=== PATIENT | male | born 1960 | race Caucasian/White ===

== ENCOUNTER → 2016-10-11 16:26 | Outpatient (CLI) | payer BC ==
[2016-08-10 07:35] VITALS: BMI 29.3
[~2016-10-11 16:26] MED LIST: ADVAIR 100/501 DISK INH; BAYER CHEWABLE81 MG PO; CO Q-10100 MG PO; FLAXSEED OIL1000 MG PO; KRILL OIL 1,001 EAC1 PO; LIALDA1.2 G PO; MULTIPLE VITAMI1 TA1 PO; OMEPRAZOLE20 M1 PO; OS-CAL500 MG PO; PEPCID AC20 MG PO; PLAVIX75 MG PO; PRAVACHOL40 MG PO; PROAIR HFA8.5 GM INH; PROBIOTIC1 EAC1 PO; RANEXA1000 MG PO; ZETIA10 MG PO
[2016-10-11 17:39] LABS: CHOL - HDL RATIO 4.1 ratio (2.3-4.9); LDL-HDL RATIO 2.8 ratio (1.5-3.5)
== END | disposition home or self-care (01) ==
LOC: D.LABREF 16:26
PROVIDERS: Internal Medicine Interventional Cardiology
DX: I25.10 Atherosclerotic heart disease of native coronary artery without angina pectoris (principal)

== ENCOUNTER 2016-11-28 08:17 | Outpatient (CLI) | payer BC ==
[~2016-11-28] VITALS: Ht 170.2 cm; Wt 83.2 kg
--- NOTE | ~2016-11-28 | HEMODYNAMI ---
PATIENT:CHAUNCEY REDD MEDICAL RECORD: [id number] : 58 LOCATION:[facility] ADMISSION DATE: 11/28/16 Generatedon:11/28/201611:03 Patient name: CHAUNCEY REDD Patient #: [id number] SSN: : 1960 Date of study: 11/28/2016 Page: Of Hemodynamic Procedure Report Patient Data Patient Demographics Procedure consent was obtained First Name: CHAUNCEY Gender: Male Last Name: IVANIA : 1960 [facility] Initial: J Age: 56 year(s) Patient #: [id number] Race: Additional ID: [id number] Contact details Address: [address] [place] [address] State: [place] City: [place] Zip code: [address] Past Medical History Allergies Allergen Reaction Date Comments Reported Other 01/29/2016 AVELOX, CODEINE, SULFA allergy Other 05/13/2016 Sulfa,Codeine,Moxiloxacin allergy Sulfa 08/10/2016 drugs Codeine 08/10/2016 Sulfa 11/28/2016 drugs Codeine 11/28/2016 Other 11/28/2016 avelox allergy Admission Admission Data Admission Date: 11/28/2016 Admission Time: 8:17 Admit Source: Other Height (in.): 67 BSA: 1.95 (m2) Height (cm.): 170.18 BMI: 28.66 (kg/m2) Weight (lbs.): 183 Weight (kg.): 83.01 Lab Results Lab Result Date: 11/28/2016 Lab Result Time: 0:00 Biochemistry Name Units Result Min Max Creatinine mg/dl 0.7 --(*---)-- 0.6 1.3 CBC Name Units Result Min Max Hemoglobin g/dl 14.1 --(*---)-- 13.5 17.5 Procedure Procedure Types Cath Procedure Diagnostic Procedure [facility] w/Coronaries PCI Procedure Coronary Stent Initial Miscellaneous Procedures Moderate Sedation up to 15 minutes Procedure Description Procedure Date Procedure Date: 11/28/2016 Procedure Start Time: 10:47 Procedure End Time: 11:03 Procedure Staff Name Function Crow Quevedo MD Performing Physician Jose Lo RT Scrub Curtis Martin RN Nurse Petrona Dubose RT Monitor Procedure Data Cath Procedure Fluoroscopy Diagnostic fluoroscopy Total fluoroscopy Time: 2.8 time: 2.8 min min Diagnostic fluoroscopy Total fluoroscopy dose: 418 dose: 418 mGy mGy Contrast Material Contrast Material Type Amount (ml) Isovue 300 64 Entry Location Entry Primary Successful Side Size Upsize Upsize Entry Closure Orantes ccessful Closure Location (Fr) 1 (Fr) 2 (Fr) Remarks Device Remarks Radial Right 6 Fr Mechanical artery Short Compression Estimated blood loss: 10 ml Diagnostic catheters Device Type Used For End Catheter Placement Terumo 5Fr Anadarko 110cm LV Angiography catheter Terumo 5Fr Anadarko 110cm Left Coronary catheter Angiography Terumo 5Fr Anadarko 110cm Right Coronary catheter Angiography Procedure Complications No complications Procedure Medications Medication Administration Route Dosage Oxygen NC 2 l/min Heparin Flush Bag added to field 2 bags (1000units/500ml NS) 0.9% NaCl I.V. 100 ml/hr Radial Cocktail added to field 1 syringe (Verapomil 2mg/Nitro 400mcg/Heparin 1500units) Fentanyl I.V. 50 mcg Versed I.V. 1 mg Fentanyl I.V. 50 mcg Versed I.V. 1 mg Radial Cocktail I.A. 1 syringe (Verapomil 2mg/Nitro 400mcg/Heparin 1500units) Fentanyl I.V. 50 mcg Heparin Bolus I.V. 4000 units Hemodynamics Rest BSA: 1.95 (m2) HGB: 14.1 (g/dl) O2 Consumption: Estimated: 219.58 (ml/min) O2 Co nsumption indexed: Estimated:112.61 (ml/min/m) Heart Rate: 55 (bpm) Snapshots Pre Cath Intra NCS Post Cath Vital Signs Time Heart Resp SPO2 NIBP (mmHg) Rhythm Pain Sedation Rate (ipm) (%) Status Level (bpm) 10:31:01 54 18 99 127/79(102) NSR 0 (11) 10(A) , No pain 10:35:03 55 16 100 120/81(100) NSR 0 (11) 10(A) , No pain 10:39:12 55 16 97 125/76(102) NSR 0 (11) 10(A) , No pain 10:43:25 60 17 92 125/74(97) NSR 0 (11) 10(A) , No pain 10:47:36 58 16 92 120/70(94) NSR 0 (11) 10(A) , No pain 10:51:46 66 16 91 122/61(89) NSR 0 (11) 9(A) , No pain 10:56:00 62 16 92 122/62(88) NSR 0 (11) 9(A) , No pain 11:00:10 62 16 94 125/75(98) NSR 0 (11) 9(A) , No pain Medications Time Medication Route Dose Verified Delivered Reason Note s Effectiveness by by 10:40:19 Oxygen NC 2 l/min Curtis Acevedo Per physician Mario Martin RN RN 10:40:28 Heparin Flush added 2 bags Curtis Acevedo used for Bag to Mario Martin RN procedure (1000units/500ml RN NS) 10:40:38 0.9% NaCl I.V. 100 Curtis Acevedo Per physician ml/hr Mario Martin RN RN 10:40:47 Radial Cocktail added 1 Curtis Acevedo used for (Verapomil to syringe Mario Martin RN procedure 2mg/Nitro RN 400mcg/Heparin 1500units) 10:43:53 Fentanyl I.V. 50 mcg Curtis Currany for sedation Mario Martin RN RN 10:44:00 Versed I.V. 1 mg Curtis Curtis for sedation Mario Martin RN RN 10:48:52 Fentanyl I.V. 50 mcg Curtis Curtis for sedation Mario Martin RN RN 10:48:54 Versed I.V. 1 mg Curtis Curtis for sedation Mario Martin RN RN 10:49:02 Radial Cocktail I.A. 1 Curtis Maria for (Verapomil syringe Mario pino 2mg/Nitro RN 400mcg/Heparin 1500units) 10:52:44 Fentanyl I.V. 50 mcg Curtis Curtis for sedation Mario Martin RN RN 10:54:38 Heparin Bolus I.V. 4000 Curtis Curtis for units Martin Martin RN anticoagulation [employer] Log Time Note 10:17:15 Diagnostic Cath Status : Elective 10:17:37 Curtis Martin RN sent for patient. Start room use. 10:17:38 Time tracking: Regular hours 10:17:42 Plan of Care:Hemodynamics will remain stable., Cardiac rhythm will remain stable., Comfort level will be maintained., Respiratory function will remain adequate., Patient/ family verbilizes understanding of procedure., Procedure tolerated without complication., Recovers from procedure without complications.. 10:20:07 Lab Result : Hemoglobin 14.1 g/dl 10:20:07 Lab Result : Creatinine 0.7 mg/dl 10:20:12 Admit Source: Other 10:20:28 Patient Height : 170.18 cm 10:20:31 Patient Weight : 83.01 kg 10:23:17 Patient received from Pre/Post Procedure Room to CCL 2 Alert and oriented. Tansferred to table in Supine position. 10:23:18 Warm blankets applied, and fady hugger turned on for patient comfort. 10:23:18 Correct patient and procedure confirmed by team. 10:23:19 Signed procedure consent form obtained from patient. 10:23:20 ECG and BP/O2 sat monitors applied to patient. 10:23:21 Full Disclosure recording started 10:29:53 Vital chart was started 10:36:45 Baseline sample Acquired. 10:37:45 Rhythm: sinus bradycardia 10:38:06 H&P Date Dictated: 11/23/2016 Within 30 days and on chart., H&P Addendum completed by physician on day of procedure. (MUST COMPLETE FOR ALL OUTPATIENTS). 10:38:08 Pre-procedure instructions explained to patient. 10:38:08 Pre-op teaching completed and patient verbalized understanding. 10:38:09 Family in waiting room. 10:38:15 Patient NPO since Midnight. 10:38:29 Patient allergic to Sulfa drugs 10:38:35 Patient allergic to Codeine 10:38:46 Patient allergic to Other allergyavelox 10:38:49 Is the patient allergic to Iodine/contrast media? No. 10:38:51 Is patient on blood thinner?Yes 10:38:53 ACC The patient was administered the following blood thiners within the last 24 hours: ACCPlavix 10:39:06 Patient diabetic? No. 10:39:10 Previous problem with sedation/anesthesia? No ? 10:39:11 Snore? Yes 10:39:13 Sleep apnea? No 10:39:15 Deviated septum? No 10:39:16 Opens mouth fully? Yes 10:39:17 Sticks out tongue? Yes 10:39:20 Airway obstruction? Yes COPD 10:39:24 Dentures? No ? 10:39:28 Pre procedure: right dorsailis pedis pulse 2+ Normal; easily identifiable; not easily obliterated 10:39:30 Modified Bryan's test Ulnar < 7 seconds 10:39:32 Patient pain scale 0/10 ?. 10:39:40 IV patent on arrival in left hand with 0.9% NaCl at [facility]. 10:39:46 Lab results completed and on chart. 10:39:50 Right Radial & Right Groin area was prepped with chlora-prep and draped in sterile fashion 10:39:51 Alarms reviewed by R. N. 10:39:51 Sharps counted by scrub and verified by R.N. 10:39:54 Use device set Radial Dx 10:39:55 Acist Syringe opened to sterile field. 10:39:56 Medline Cath Pack opened to sterile field. 10:39:56 Bag Decanter opened to sterile field. 10:39:57 Terumo 6Fr Slender Glidesheath opened to sterile field. 10:39:57 St Anjum 260cm J .035 wire opened to sterile field. 10:39:58 Acist Hand Control opened to sterile field. 10:39:58 Acist Manifold opened to sterile field. 10:39:59 Tegaderm 4 x 4 opened to sterile field. 10:40:02 Final Timeout: patient, procedure, and site verified with staff and physician. All members of the team are in agreement. 10:40:04 Right Radial site verified by team. 10:40:06 Physical assessment completed. ASA score P 2 - A patient with mild systemic disease as per Crow Quevedo MD. 10:40:09 Sedation plan: IV Moderate Sedation Versed, Fentanyl 10:40:19 Oxygen 2 l/min NC was given by Curtis Martin RN; Per physician; 10:40:28 Heparin Flush Bag (1000units/500ml NS) 2 bags added to field was given by Curtis Martin RN; used for procedure; 10:40:38 0.9% NaCl 100 ml/hr I.V. was given by Curtis Martin RN; Per physician; 10:40:47 Radial Cocktail (Verapomil 2mg/Nitro 400mcg/Heparin 1500units) 1 syringe added to field was given by Curtis Martin RN; used for procedure; 10:43:53 Fentanyl 50 mcg I.V. was given by Curtis Martin RN; for sedation; 10:44:00 Versed 1 mg I.V. was given by Curtis Martin RN; for sedation; 10:46:15 Zero performed for pressure channel P1 10:46:43 Procedure started. 10:47:32 Local anesthetic to right radial artery with Lidocaine 2% by Crow Quevedo MD.INITIAL ACCESS ONLY 10:48:52 Fentanyl 50 mcg I.V. was given by Curtis Martin RN; for sedation; 10:48:54 Versed 1 mg I.V. was given by Curtis Martin RN; for sedation; 10:49:01 A 6 Fr Short sheath was inserted into the Right Radial artery 10:49:02 Radial Cocktail (Verapomil 2mg/Nitro 400mcg/Heparin 1500units) 1 syringe I.A. was given by Crow Quevedo MD; for vasodilation; 10:49:56 A Terumo 5Fr Anadarko 110cm catheter was advanced over the wire and used for LV Angiography. 10:50:46 LV gram done using DEVI 10:50:50 Injector settings: Ml/sec: 5, Volume: 15, 10:51:16 EF : 50 % 10:51:23 A Terumo 5Fr Anadarko 110cm catheter was advanced over the wire and used for Left Coronary Angiography. 10:51:57 Araujo Whisper J 300cm 0.014 guide wire opened to sterile field. 10:51:57 CircleCI BasixCompak Inflation Kit opened to sterile field. 10:52:37 A Terumo 5Fr Anadarko 110cm catheter was advanced over the wire and used for Right Coronary Angiography. 10:52:44 Fentanyl 50 mcg I.V. was given by Curtis Martin RN; for sedation; 10:53:15 Catheter removed. 10:53:32 Cordis 6FR XBLAD 3.5 guide catheter opened to sterile field. 10:54:38 Heparin Bolus 4000 units I.V. was given by Curtis Martin RN; for anticoagulation; 10:54:40 6 Fr XBLAD 3.5 guide catheter was inserted over the wire 10:56:05 Whisper wire advanced. 10:56:57 Inflation Number: 1 A Promus Premier OTW 2.75 x 24 stent was prepped and advanced across the Mid LAD. The stent was deployed at 19 DEEP for 0:11 (min:sec). 10:57:24 Inflation number: 2 The stent balloon was then re-inflated across the Mid LAD to 21 DEEP for 0:11 (min:sec). 10:57:48 Stent catheter was removed intact over wire. 10:57:49 Wire removed. 10:57:49 Guide catheter removed. 10:58:00 Sheath removed intact; hemostasis achieved with Mechanical Compression to the Right Radial artery. 10:58:04 Procedure ended.(Physican Out) 10:58:12 Terumo TR Band Standard opened to sterile field. 10:58:25 Fluoroscopy time 02.80 minutes. 10:58:31 Fluoroscopy dose: 418 mGy 10:58:31 Flurop Dose total: 418 10:58:39 Contrast amount:Isovue 300 64ml. 10:58:41 Sharps counted by scrub and verified by R.N. 10:58:43 TR band inflated with 12cc of air. 10:58:44 Insertion/operative site no bleeding no hematoma. 10:58:55 Post right radial artery:stable, clean and dry 10:58:56 Post Procedure Pulses reassessed and unchanged 10:58:59 Post-procedure physical assessment completed. ASA score P 2 - A patient with mild systemic disease as per Crow Quevedo MD. 10:59:01 Post procedure rhythm: unchanged. 10:59:03 Estimated blood loss: 10 ml 10:59:05 Post procedure instruction explained to patient.Patient verbalizes understanding. 10:59:06 Patient needs reinforcement of post procedure teaching. 10:59:17 Procedure type changed to Cath procedure, Diagnostic procedure, LHC, LHC w/Coronaries, PCI procedure, Coronary Stent Initial, Miscellaneous Procedures, Moderate Sedation up to 15 minutes 10:59:44 Procedure Complication : No complications 10:59:47 See physician's report for complete and final results. 11:00:37 Procedure and supply charges have been captured, reviewed, submitted and are correct. 11:03:11 Vital chart was stopped 11:03:13 Report given to Pre/Post Procedure Room. 11:03:16 Patient transfered to Pre/Post Procedure Room with Stretcher. 11:03:19 Procedure ended. 11:03:19 Full Disclosure recording stopped 11:03:23 End room use (Document Last) Intervention Summary Intervention Notes Time ActionType Lesion and Equipment Action# Pressure Duration Attributes Used 10:56:57 Place stent Mid LAD Promus 1 19 00:11 Premier OTW 2.75 x 24 stent 10:57:24 Reinflate Mid LAD Promus 2 21 00:12 stent Premier balloon OTW 2.75 x 24 stent Device Usage Item Name Manufacture Quantity Catalog Number Hospital Part Current Mini mal Lot# / Charge Number Stock Stock Serial# Code Acist Acist 1 [id number] 089980 882385 031338 20 Syringe [employer] Inc Medline Cardinal 1 [id number] 68983 685963 5 Cath Pack Health Bag Microtek 1 2002S 857949 58735 107391 5 [employer], an [employer]. Terumo 6Fr Terumo 1 [id number] 726389 640671 066729 [address] An[address] St Anjum 1 021974 571598 571942 875697 30 260cm J .035 wire Acist Hand Acist 1 26654 619673 463724 883652 5 Control Medical Systems Inc Acist Acist 1 29162 762293 776086 781955 5 Manifold Medical Systems Inc Tegaderm 4 3M 1 1626W 298471 312296 461310 5 x 4 Terumo 5Fr Terumo 1 40-3553 421735 341194 819691 5 Anadarko 110cm catheter Araujo Araujo 1 [id number] 100463 284097 478374 5 Whisper J Vascular 300cm 0.014 guide wire Merit Merit 1 [id number] 465590 468974 560021 15 [employer] Medical Inflation Kit Cordis 6FR Cardinal 1 [id number] 386397 514444 816897 10 XBLAD 3.5 Health guide catheter Promus [place] 1 [id number] 849669 474289 5 [id number] Premier OTW Scientific 2.75 x 24 stent Terumo TR Terumo 1 [id number] 041159 152676 897794 40 Band Standard Signature Audit Peshtigo Stage Time Signature Unsigned Intra-Procedure 11/28/2016 Petrona 11:03:33 AM Counts RT(R) Signatures Monitor : Petrona Signature : Counts RT Date : Time : [address] [place] [address]
[~2016-11-28 08:17] MED LIST changes: -CO Q-10100 MG PO; -FLAXSEED OIL1000 MG PO; -KRILL OIL 1,001 EAC1 PO; -PEPCID AC20 MG PO; -PROBIOTIC1 EAC1 PO
[2016-11-28] MEDS ORDERED: PEPCID AC20 MG PO (08:50)
[2016-11-28] MEDS ORDERED: LIALDA1.2 G PO (08:51)
[2016-11-28] MEDS ORDERED: CO Q-10100 MG PO (08:52)
[2016-11-28] MEDS ORDERED: KRILL OIL 1,001 EAC1 PO (08:53)
[2016-11-28] MEDS ORDERED: PROBIOTIC1 EAC1 PO (08:54)
[2016-11-28] MEDS ORDERED: MULTIPLE VITAMI1 TA1 PO (08:54)
[2016-11-28] MEDS ORDERED: FLAXSEED OIL1000 MG PO (08:54)
[2016-11-28 08:58] VITALS: BP 133/74; Ht 170.2 cm; Wt 83.2 kg
[2016-11-28 09:12] LABS: BASOPHILS 0.2 % (0.0-2.0); EOSINOPHILS 0.7 % (0-7); HEMATOCRIT 42.8 % (42.0-54.0); HEMOGLOBIN 14.1 g/dL (13.5-17.5); IMMATURE GRANULOCYTES 0.2 % (0-5); LYMPHOCYTES 24.7 % (15-50); MCH 29.6 pg (26.0-34.0); MCHC 32.9 g/dL (31.0-37.0); MCV 89.7 fL (80.0-100.0); MEAN PLATELET VOLUME 9.5 fL (7.4-10.4); MONOCYTES 6.7 % (2-11); NEUTROPHILS 67.5 % (40-80); PLATELET COUNT 274 10x3/uL (130-400); RBC 4.77 10x6/uL (4.20-6.10); RDW 13.5 % (11.5-14.5); WBC 5.8 10x3/uL (4.8-10.8)
[2016-11-28 09:23] LABS: CALC OSMOLALITY 285 mosm/kg (275-300); CALCIUM 9.3 mg/dL (8.5-10.1); CARBON DIOXIDE 27.1 mmol/L (21.0-32.0); CHLORIDE - SERUM 107 mmol/L (98-107); CREATININE - SERUM 0.7 mg/dL (0.6-1.3); GLUCOSE 107 mg/dL (74-106); POTASSIUM - SERUM 3.9 mmol/L (3.5-5.1); SODIUM 142 mmol/L (136-145); UREA NITROGEN 21 mg/dL (7-18); eGFR NON AFRICAN AMERICAN > 90 mL/min (90-120)
--- NOTE | 2016-11-28 11:28 | NUR ---
1128- RIGHT WRIST WITH TR BAND INTACT, NO BLEEDING NOTED.
--- NOTE | 2016-11-28 12:54 | NUR ---
1200-NO CHANGES, DENIES CHEST PAIN, NO BLEEDING, SANDWICH TRAY GIVEN
--- NOTE | 2016-12-13 14:37 | OP ---
PATIENT NAME: CHAUNCEY REDD MEDICAL RECORD: [id number] :58 LOCATION:D[facility] ADMISSION DATE: SURGEON: KISHAN CARMONA MD DATE OF OPERATION: 11/28/2016 PROCEDURES: 1. PTCA stent LAD. 2. Left heart catheterization. 3. Selective coronary angiography. 4. Left ventriculogram. INDICATION: Angina and coronary artery disease. PROCEDURE IN DETAIL: After informed consent was obtained and after a detailed explanation of the risks, benefits as well as alternative therapies, the patient elected to proceed with angiogram and angioplasty. The right radial area was prepped and draped in normal sterile fashion. The right radial artery was cannulated via modified Seldinger technique with placement of 6-Mohawk sheath. All catheters exchanged through this sheath. FINDINGS: Left ventriculogram was performed in standard 30-degree DEVI view, reveals good cardiac wall motion throughout all segments. Overall ejection fraction estimated 60%. SELECTIVE CORONARY ANGIOGRAPHY: 1. Left main showed no significant angiographic disease. 2. Left anterior descending has previously placed stents, it was up to 70% in-stent restenosis in the mid vessel. 3. Left circumflex has moderate irregularities, but no flow-limiting stenosis. Previously placed stent is widely patent. 4. Right coronary is small, nondominant with no significant disease throughout. PTCA STENT OF THE LAD: The stent used 2.75 x 24 mm Promus. Result was 0% residual stenosis. OVERALL IMPRESSION: Successful percutaneous transluminal coronary angioplasty stent of the left anterior descending going from at least 70% in-stent restenosis to 0% residual. TRANSINT:[id number] Voice Confirmation ID: [id number] DOCUMENT ID: [id number] KISHAN CARMONA MD at 1437 CC: [id number] DICTATION DATE: 11/28/16 1101 FIELD LABORER: 11/28/16 1856 [facility] CLI 11/28/16 [address] [place] [address]
== END 2016-11-28 15:00 | disposition home or self-care (01) ==
LOC: D.CATH 08:17
PROVIDERS: Internal Medicine Interventional Cardiology
DX: I25.119 Atherosclerotic heart disease of native coronary artery with unspecified angina pectoris (principal); T82.855A Stenosis of coronary artery stent, initial encounter

== ENCOUNTER 2017-07-07 02:16 | Emergency (ER) | payer BC ==
[2016-11-28 08:58] VITALS: BMI 28.7
[~2017-07-07 02:16] MED LIST changes: +CO Q-10100 MG PO; +FLAXSEED OIL1000 MG PO; +KRILL OIL 1,001 EAC1 PO; +PEPCID AC20 MG PO; +PROBIOTIC1 EAC1 PO
== END 2017-07-07 03:00 | disposition home or self-care (01) ==
LOC: D.ER 02:16
DX: H57.11 Ocular pain, right eye (principal)

== ENCOUNTER 2017-08-11 19:15 | Observation (INO) | payer BC ==
[~2017-08-11] VITALS: Ht 170.2 cm; Wt 81.1 kg
--- NOTE | ~2017-08-11 | HEMODYNAMI ---
PATIENT:CHAUNCEY REDD MEDICAL RECORD: [id number] : 58 LOCATION:[facility] D.2120 ADMISSION DATE: 08/11/17 Generatedon:08/12/20178:48 Patient name: CHAUNCEY REDD Patient #: [id number] SSN: : 1960 Date of study: 08/12/2017 Page: Of Hemodynamic Procedure Report Patient Data Patient Demographics Procedure consent was obtained First Name: CHAUNCEY Gender: Male Last Name: IVANIA : 1960 [facility] Initial: E Age: 56 year(s) Patient #: [id number] Race: Additional ID: [id number] Contact details [address]: [address] [place] [address] State: [place] City: [place] Zip code: [address] Past Medical History Allergies Allergen Reaction Date Comments Reported Other 01/29/2016 AVELOX, CODEINE, SULFA allergy Other 05/13/2016 Sulfa,Codeine,Moxiloxacin allergy Sulfa 08/10/2016 drugs Codeine 08/10/2016 Sulfa 11/28/2016 drugs Codeine 11/28/2016 Other 11/28/2016 avelox allergy Admission Admission Data Admission Date: 08/11/2017 Admission Time: 22:15 Room #: D.2120 Procedure Procedure Types Cath Procedure Diagnostic Procedure C [facility] w/Coronaries Miscellaneous Procedures Moderate Sedation up to 15 minutes Procedure Description Procedure Date Procedure Date: 08/12/2017 Procedure Start Time: 8:38 Procedure End Time: 8:48 Procedure Staff Name Function Crow Quevedo MD Performing Physician Eric Montano RT Monitor Petrona Dubose RT Scrub Curtis Martin RN Nurse Procedure Data Cath Procedure Fluoroscopy Diagnostic fluoroscopy Total fluoroscopy Time: 0.9 time: 0.9 min min Diagnostic fluoroscopy Total fluoroscopy dose: 220 dose: 220 mGy mGy Contrast Material Contrast Material Type Amount (ml) Isovue 300 38 Entry Location Entry Primary Successful Side Size Upsize Upsize Entry Closure Orantes ccessful Closure Location (Fr) 1 (Fr) 2 (Fr) Remarks Device Remarks Radial Right 6 Fr Mechanical artery Short Compression Estimated blood loss: 10 ml Diagnostic catheters Device Type Used For End Catheter Placement Diagnostic Terumo 5Fr Procedure [place] 110cm catheter Procedure Complications No complications Procedure Medications Medication Administration Route Dosage Oxygen NC 2 l/min Heparin Flush Bag added to field 2 bags (1000units/500ml NS) 0.9% NaCl I.V. 100 ml/hr Radial Cocktail added to field 1 syringe (Verapomil 2mg/Nitro 400mcg/Heparin 1500units) Fentanyl I.V. 50 mcg Versed I.V. 1 mg Fentanyl I.V. 50 mcg Versed I.V. 1 mg Radial Cocktail I.A. 1 syringe (Verapomil 2mg/Nitro 400mcg/Heparin 1500units) Hemodynamics Rest Heart Rate: 62 (bpm) Snapshots Pre Cath Intra NCS Post Cath Vital Signs Time Heart Resp SPO2 etCO2 NIBP (mmHg) Rhythm Pain Sedation Rate (ipm) (%) (mmHg) Status Level (bpm) 8:29:54 61 17 96 0 131/79(99) NSR 0 (11) 10(A) , No pain 8:34:37 61 16 97 0 121/73(99) NSR 0 (11) 10(A) , No pain 8:39:36 67 18 92 30 Measuring NSR 0 (11) 10(A) , No pain 8:39:57 62 16 94 22.5 129/79(105) NSR 0 (11) 10(A) , No pain 8:44:35 68 16 94 26.2 117/69(97) NSR 0 (11) 9(A) , No pain Medications Time Medication Route Dose Verified Delivered Reason Notes E ffectiveness by by 8:33:26 Oxygen NC 2 l/min Crow Acevedo Per Sae Martin RN physician 8:33:38 Heparin Flush added 2 bags Crow Acevedo used for Bag to Sae Martin rock room worker (1000units/500ml field NS) 8:33:48 0.9% NaCl I.V. 100 Crow Acevedo Per ml/hr Sae Martin RN physician 8:33:58 Radial Cocktail added 1 Crow Acevedo used for (Verapomil to syringe Sae Martin RN procedure 2mg/Nitro field 400mcg/Heparin 1500units) 8:38:00 Fentanyl I.V. 50 mcg Crow Acevedo for sedation Sae Martin RN 8:38:07 Versed I.V. 1 mg Crow Acevedo for sedation Sae Martin RN 8:41:03 Fentanyl I.V. 50 mcg Crow Acevedo for sedation Sae Martin RN 8:41:07 Versed I.V. 1 mg Crow Acevedo for sedation Sae Martin RN 8:41:16 Radial Cocktail I.A. 1 Crow Maria for (Verapomil syringe Sae Quevedo MD vasodilation 2mg/Nitro 400mcg/Heparin 1500units) Procedure Log Time Note 8:04:14 Curtis Martin RN sent for patient. Start room use. 8:04:16 Time tracking: Call back 8:04:20 Plan of Care:Hemodynamics will remain stable., Cardiac rhythm will remain stable., Comfort level will be maintained., Respiratory function will remain adequate., Patient/ family verbilizes understanding of procedure., Procedure tolerated without complication., Recovers from procedure without complications.. 8:22:05 Patient received from PCU to CCL 1 Alert and oriented. Tansferred to table in Supine position. 8:22:06 Warm blankets applied, and fady hugger turned on for patient comfort. 8:22:06 Correct patient and procedure confirmed by team. 8:22:07 Signed procedure consent form obtained from patient. 8:22:09 ECG and BP/O2 sat monitors applied to patient. 8:22:09 Full Disclosure recording started 8:22:22 IV patent on arrival in right wrist with 0.9% NaCl at KVO. 8:24:06 IV started by Curtis Martin RN inleft hand with a 22 gauge IV catheter with 0.9% NaCl at KVO. 8:24:13 IV right wrist D/C'd due to need to relocate for procedure.. 8:29:01 Vital chart was started 8:33:26 Oxygen 2 l/min NC was administered by Curtis Martin RN; Per physician; 8:33:38 Heparin Flush Bag (1000units/500ml NS) 2 bags added to field was administered by Curtis Martin RN; used for procedure; 8:33:48 0.9% NaCl 100 ml/hr I.V. was administered by Curtis Martin RN; Per physician; 8:33:58 Radial Cocktail (Verapomil 2mg/Nitro 400mcg/Heparin 1500units) 1 syringe added to field was administered by Curtis Martin RN; used for procedure; 8:35:24 Baseline sample Acquired. 8:35:27 Rhythm: sinus rhythm 8:35:33 H&P Date Dictated: 08/12/2017 Within 30 days and on chart.. 8:35:34 Pre-procedure instructions explained to patient. 8:35:34 Pre-op teaching completed and patient verbalized understanding. 8:35:36 Family in patients room. 8:35:38 Patient NPO since Midnight. 8:35:39 Is the patient allergic to Iodine/contrast media? No. 8:35:40 Is patient on blood thinner?Yes 8:35:43 ACC The patient was administered the following blood thiners within the last 24 hours: ACCPlavix 8:35:44 Patient diabetic? No. 8:35:46 Previous problem with sedation/anesthesia? No ? 8:35:48 Snore? Yes 8:35:50 Sleep apnea? No 8:35:51 Deviated septum? No 8:35:52 Opens mouth fully? Yes 8:35:52 Sticks out tongue? Yes 8:35:54 Airway obstruction? Yes COPD 8:35:56 Dentures? No ? 8:36:09 Pre procedure: right dorsailis pedis pulse 1+ Palpable, but thready & weak; easily obliterated 8:36:11 Modified Bryan's test Ulnar < 7 seconds 8:36:14 Patient pain scale 0/10 ?. 8:36:16 Lab results completed and on chart. 8:36:19 Right Radial & Right Groin area was prepped with chlora-prep and draped in sterile fashion 8:36:20 Alarms reviewed by R. N. 8:36:21 Sharps counted by scrub and verified by R.N. 8:36:22 --------ALL STOP TIME OUT------ 8:36:22 Final Timeout: patient, procedure, and site verified with staff and physician. All members of the team are in agreement. 8:36:24 Right Radial & Right Groin site verified by team. 8:36:28 Physical assessment completed. ASA score P 2 - A patient with mild systemic disease as per Crow Quevedo MD. 8:36:31 Sedation plan: IV Moderate Sedation Medication:Versed, Fentanyl 8:37:10 Use device set Radial Dx 8:37:12 Tegaderm 4 x 4 opened to sterile field. 8:37:13 Acist Manifold opened to sterile field. 8:37:49 Acist Hand Control opened to sterile field. 8:37:51 Acist Syringe opened to sterile field. 8:37:51 Medline Cath Pack opened to sterile field. 8:37:52 Bag Decanter opened to sterile field. 8:37:52 Terumo 6Fr Slender Glidesheath opened to sterile field. 8:37:52 St Anjum 260cm J .035 wire opened to sterile field. 8:37:53 MBrace Wrist Support opened to sterile field. 8:38:00 Fentanyl 50 mcg I.V. was administered by Curtis Martin RN; for sedation; 8:38:01 22g IV Catheter opened to sterile field. 8:38:06 Procedure started. 8:38:07 Versed 1 mg I.V. was administered by Curtis Martin RN; for sedation; 8:38:11 Local anesthetic to right radial artery with Lidocaine 2% by Crow Quevedo MD.INITIAL ACCESS ONLY 8:40:10 A 6 Fr Short sheath was inserted into the Right Radial artery 8:40:30 A Diagnostic Terumo 5Fr [place] 110cm catheter was advanced over the wire and used for Procedure. 8:40:31 Zero performed for pressure channel P1 8:41:03 Fentanyl 50 mcg I.V. was administered by Curtis Martin RN; for sedation; 8:41:07 Versed 1 mg I.V. was administered by Curtis Martin RN; for sedation; 8:41:16 Radial Cocktail (Verapomil 2mg/Nitro 400mcg/Heparin 1500units) 1 syringe I.A. was administered by Crow Quevedo MD; for vasodilation; 8:41:22 LV angiography performed. 8:41:25 LV gram done using DEVI 8:41:29 EF : 60 % 8:41:34 Injector settings: Ml/sec: 5, Volume: 15, 8:42:19 LCA angiography performed. 8:42:43 RCA angiography performed. 8:42:46 Catheter exchanged over wire. 8:43:37 Terumo TR Band Standard opened to sterile field. 8:43:40 Procedure ended.(Physican Out) 8:43:52 Sheath removed intact; hemostasis achieved with Mechanical Compression to the Right Radial artery. 8:44:17 Fluoroscopy time 00.90 minutes. 8:44:21 Fluoroscopy dose: 220 mGy 8:44:21 Flurop Dose total: 220 8:44:25 Contrast amount:Isovue 300 38ml. 8:44:27 Sharps counted by scrub and verified by R.N. 8:44:29 TR band inflated with 12cc of air. 8:44:31 Insertion/operative site no bleeding no hematoma. 8:44:36 Post Procedure Pulses reassessed and unchanged 8:44:38 Post-procedure physical assessment completed. ASA score P 2 - A patient with mild systemic disease as per Crow Quevedo MD. 8:44:41 Post procedure rhythm: unchanged. 8:44:44 Estimated blood loss: 10 ml 8:44:47 Post procedure instruction explained to patient.Patient verbalizes understanding. 8:44:47 Patient needs reinforcement of post procedure teaching. 8:44:54 Procedure type changed to Cath procedure, Diagnostic procedure, LHC, LHC w/Coronaries, Miscellaneous Procedures, Moderate Sedation up to 15 minutes 8:44:57 Procedure Complication : No complications 8:45:00 Procedure and supply charges have been captured, reviewed, submitted and are correct. 8:47:53 Vital chart was stopped 8:47:54 See physician's report for complete and final results. 8:47:56 Report given to PCU. 8:47:59 Patient transfered to PCU with Bed. 8:48:01 Procedure ended. 8:48:01 Full Disclosure recording stopped 8:48:04 End room use (Document Last) Device Usage Item Name Manufacture Quantity Catalog Hospital Part Current Minimal Lot# / Number Charge Number Stock Stock Serial# Code Tegaderm 4 1 [id number] 948200 [id number] 5 x 4 Acist Acist 1 88745 689631 403524 388067 [address] Acist Hand Acist 1 87548 790663 020332 807115 5 Control [employer] Systems Inc Acist Acist 1 10002 814272 480351 092445 20 Syringe Medical Systems Inc Medline Cardinal 1 [id number] 019867 86704 163365 5 Cath Pack Health Bag Microtek 1 2002S 728055 62252 205517 5 Decanter Medical Inc. Terumo 6Fr Terumo 1 [id number] 769921 855912 212747 [address] An[address]um St Anjum 1 104620 125795 850141 793374 30 260cm J .035 wire MBrace Advanced 1 140-0250-00 289489 98641 470344 5 Wrist Vascular Support Dynamics 22g IV B. Manning 1 [id number] 728129 538784 750636 5 Catheter Diagnostic Terumo 1 40-7203 750298 672000 352721 5 Terumo 5Fr [place] 110cm catheter Terumo TR Terumo 1 [id number] 112042 591988 491755 40 Band Standard Signature Audit [place] Stage Time Signature Unsigned Intra-Procedure 08/12/2017 Eric Montano 8:48:29 AM RT(R) Signatures Monitor : Eric Montano RT Signature : Date : Time : [address] [address]
[2017-08-11 19:50] LABS: BASOPHILS 0.8 % (0-2); EOSINOPHILS 2.3 % (0-7); HEMATOCRIT 43.5 % (42.0-54.0); HEMOGLOBIN 14.4 g/dL (13.5-17.5); IMMATURE GRANULOCYTES 0.1 % (0-5); MCHC 33.1 g/dL (31.0-37.0); MCV 90.6 fL (80.0-100.0); MEAN PLATELET VOLUME 9.5 fL (7.4-10.4); MONOCYTES 6.1 % (2-11); NEUTROPHILS 60.7 % (40-80); PLATELET COUNT 273 10x3/uL (130-400); RDW 13.5 % (11.5-14.5); WBC 7.3 10x3/uL (4.8-10.8)
[2017-08-11 20:04] LABS: ALBUMIN 3.4 g/dL (3.4-5.0); ALKALINE PHOSPHATASE 64 U/L (46-116); ALT (SGPT) 28 U/L (10-68); BILIRUBIN - TOTAL 0.28 mg/dL (0.2-1.3); CALC OSMOLALITY 278 mosm/kg (275-300); CARBON DIOXIDE 28.2 mmol/L (21.0-32.0); CHLORIDE - SERUM 104 mmol/L (98-107); CREATININE - SERUM 0.8 mg/dL (0.6-1.3); GLUCOSE 114 mg/dL (74-106); POTASSIUM - SERUM 3.9 mmol/L (3.5-5.1); PROTEIN - SERUM 7.3 g/dL (6.4-8.2); SODIUM 137 mmol/L (136-145); UREA NITROGEN 25 mg/dL (7-18); eGFR NON AFRICAN AMERICAN > 90 mL/min (90-120)
[2017-08-11 20:13] LABS: CHOL - HDL RATIO 4.8 ratio (2.3-4.9); CHOLESTEROL, TOTAL 193 mg/dL (0-200); CKMB 1.2 U/L (0.0-3.6); CREATINE KINASE 76 UL (21-232); HDL CHOLESTEROL 40 mg/dL (32-96); LDL CHOLESTEROL 103 mg/dL (0-100); LDL-HDL RATIO 2.6 ratio (1.5-3.5); TRIGLYCERIDE 251 mg/dL (30-200)
[2017-08-11 20:16] LABS: TROPONIN-I < 0.017 ng/mL (0.000-0.060)
[2017-08-11] MEDS ORDERED: ZANAFLEX4 MG PO (23:34)
[2017-08-11] MEDS ORDERED: PLAQUENIL200 MG PO (23:35)
--- NOTE | 2017-08-11 23:44 | NUR ---
RECEIVED REPORT FROM ER, PT BROUGHT VIA WHEELCHAIR, [id number], IV-RFA, [id number]/81, R-18, P-57, T-98.1, PLACE CALL LIGHT IN REACH, WILL CONTINUE PLAN OF CARE
[2017-08-12] VITALS: BP 130/90
[2017-08-12 04:16] VITALS: BP 112/65
[2017-08-12 05:20] VITALS: BP 130/90; Ht 170.2 cm; Wt 81.1 kg
--- NOTE | 2017-08-12 05:34 | NUR ---
PT IN BED RESTING QUIETLY. BREATHING EVEN AND UNLABORED. FAMLIY PRESENT AT BEDSIDE X1. BED IN LOW POSITION, CALL LIGHT WITHIN REACH. WILL CTM.
--- NOTE | 2017-08-12 07:30 | NUR ---
REPORT RECEIVED. RR EVEN AND UNLABORED. PT DENIES NEEDS AT THIS TIME, FAMILY AT BEDSIDE. ASSESSMENT PERFORMED. DR. CARMONA REPORTED TO ME THAT HE WILL BE GOING FOR A HEART CATH TODAY. WILL AWAIT ORDERS.
[2017-08-12 08:00] VITALS: BP 125/66
--- NOTE | 2017-08-12 08:00 | NUR ---
REFRACTORY TECHNICIAN CALLED TO PRE-OP PT. PRE-OP COMPELTED. CONSENTS SIGNED FOR HEART CATH AND BLOOD. PT DENIES FURTHER QUESTIONS. WILL CTM UPON RETURN FROM REFRACTORY TECHNICIAN.
--- NOTE | 2017-08-12 08:56 | HP ---
PATIENT: CHAUNCEY REDD MEDICAL RECORD: [id number] ACCOUNT: [id number] LOCATION:[address] : 58 ADMISSION DATE: 08/11/17 HISTORY AND PHYSICAL EXAMINATION DIAGNOSES: 1. Unstable angina. 2. Coronary artery disease. 3. Previous PCI stent. HISTORY OF PRESENT ILLNESS: This is a gentleman with a past history of coronary artery disease, last stent was in November, began having chest pain 2 days ago in an unstable escalating fashion. He had multiple episodes of chest pain, took multiple sublingual nitro. REVIEW OF SYSTEMS: The patient reports easy bruising but reports no swollen glands. The patient reports no fever, no night sweats, no significant weight gain, no significant weight loss. No significant exercise tolerance. The patient reports no dry eyes, no irritation, no vision change. Patient reports no difficulty hearing and no ear pain. Patient reports no frequent nose bleeds or nose and sinus problems. Patient reports on arm pain on exertion. No shortness of breath while lying down. No history of heart murmur. Patient reports no cough, no wheezing or coughing up blood. Patient reports no abdominal pain, no vomiting. Normal appetite. No diarrhea and not vomiting blood. No nausea and no constipation. Patient reports no incontinence. No difficulty urinating. No hematuria. No increased frequency. Patient reports no muscle aches. No weakness, no arthralgias, no back pain. No swelling of the extremities. Patient reports no abnormal mole, no jaundice, no rashes. Reports no loss of consciousness. No weakness and no numbness. No seizures, dizziness, or headaches. The patient reports no depression, no sleep disturbance, feeling safe in a relationship and no alcohol abuse. Patient reports on fatigue. Reports no runny nose or sinus pressure. No itching, no hives, and no frequent sneezing. PHYSICAL EXAMINATION: GENERAL APPEARANCE: Well-nourished, well-developed, appears stated age. Level of distress, comfortable. PSYCHIATRIC: Mental status, alert, normal affect. Orientation, oriented to time, place and person. EYES: Lids and conjunctiva, noninjected. No discharge, no pallor. ENT: Lips, teeth, gums, normal dentition. Oropharynx, no cyanosis, no pallor. NECK: Carotid arteries, bilateral normal upstroke, no bruits, no thrills. JUGULAR VEINS: No jugular venous pressure or distention. CERVICAL LYMPH NODES: Nontender, nonenlarged. THYROID: Not enlarged. Nontender. No nodules. LUNGS: Respiratory effort, unlabored. CHEST: Normal curvature. No thoracic deformity. No chest wall tenderness. Percussion, resonant. Auscultation, clear. No wheezes, no rales, no rhonchi. CARDIOVASCULAR: Precordial exam, nondisplaced. No heaves or pericardial thrills. Rate and rhythm, regular. Heart sounds, normal S1, normal S2. No S3, no gallop, no rub. Systolic murmur, not heard. Diastolic murmur, not heard. EXTREMITIES: No cyanosis, no edema. Peripheral pulses, full and equal in all extremities, except as noted. No bruits appreciated. ABDOMEN: Soft, nondistended. Normal aorta. No bruit. Nontender. No masses. Liver, nontender, no hepatomegaly. Spleen, nontender, no splenomegaly. HISTORY AND PHYSICAL [id number] CHAUNCEY REDD MUSCULOSKELETAL: No joint tenderness. No joint swelling. No erythema. NEUROLOGICAL: Normal gait, normal strength, normal tone. SKIN: Warm and dry. OVERALL IMPRESSION: Chest pain in an unstable escalating fashion. We will proceed with coronary angiography. Further care depends upon findings of the angiography. TRANSINT:[id number] Voice Confirmation ID: [id number] DOCUMENT ID: [id number] KISHAN CARMONA MD at 0856 CC: [id number] DICTATION DATE: 08/12/1736 POISING INSPECTOR: 08/12/17 0844 ADM IN [place] [id number] [place] [address]
--- NOTE | 2017-08-12 09:00 | NUR ---
PT BACK FROM FRONT OFFICE HELP. RIGHT WRIST DRESSING CDI, TR BAND ON PT. VSS, RR EVEN AND UNLABORED. PT ON ROOM AIR. FREQUETN VS INITATIED. DR. CARMONA HAS BEEN TO SEE FAMILY AND DISCUSS POC. FAMILY DENIES FURTHER QUESTIONS AT THIS TIME. WILL CTM. DR. CARMONA REPORTED THAT PT COULD BE D/C AT 1100 TODAY.
--- NOTE | 2017-08-12 09:35 | NUR ---
VSS SINCE PT HAS RETURNED FROM VAULT CASHIER. PT SITTING UP EATING BREAKFAST IN BED. PT DENIES PAIN AND NEEDS AT THIS TIME, FAMILY AT BEDSIDE, WILL CTM.
[2017-08-12] MEDS ORDERED: PLAVIX75 MG PO (09:58)
[2017-08-12] MEDS ORDERED: ISOSORBIDE MONO30 M1 PO (09:59)
--- NOTE | 2017-08-12 10:06 | NUR ---
ATTEMPTED TO LET OUT HALF OF THE AIR IN THE TR BAND. PT BEGAN TO BLEED IMMEDIATLEY AFTER 5MLS LET OUT. REINJECTED AIR INTO TR BAND, PT NO LONGER BLEEDING. WILL CTM AND TRY AGAIN IN 30-45 MINUTES.
--- NOTE | 2017-08-12 10:52 | NUR ---
REMOVED 4 MLS OF AIR FROM TR BAND. NO BLEEDING NOTED. WILL REPEAT IN 15 MINUTES AND CTM PT RESPONSE. VSS. RR EVEN AND UNLABORED.
--- NOTE | 2017-08-12 11:39 | NUR ---
4MLS REMOVED FROM TR BAND. NO FURTHER BLEEDING NOTED. WILL TAKE OUT REMAINDER OF AIR IN 15 MINUTES. VSS. RR EVEN AND UNLABORED.
--- NOTE | 2017-08-12 12:15 | NUR ---
REMAINDER OF AIR REMOVED FROM TR BAND. NO BLEEDING NOTED, TR BAND REMOVED, DRESSING APPLIED OVER SITE. WILL CTM SITE FOR BLEEDING UNTIL D/C.
--- NOTE | 2017-08-12 13:00 | NUR ---
PT DISCHARGED. NO BLEEDING NOTED AT CATH STIE ON RIGHT WRIST. DRESING CDI. BOTH IV CATHETERS REMOVED WITH CATHETER TIP INTACT. TELE REMOVED AND RETURNED TO MARINE PIPEFITTER. D/C INSTURCTIONS PROVIDED TO PT AND FAMILY, VERBALIZED UNDERSTANDING. PT DENIES FURTHER QUESTIONS AND NEEDS, WRITTEN PRESCRIPTIONS GIVEN TO PT. TEACHING PROVIDED ON S/S OF BLEEDING AND WHAT TO DO. TEACHING PROVIDED ON NEW HOME MEDS. VEBALIZED UNDERSTANDING. WILL CALL WHEN READY TO GO HOME, WILL CHECK DRESSING ON RIGHT WRIST AGIAN AFTER PT GETS READY TO GO HOME WITH FAMILY MEMBER.
--- NOTE | 2017-08-12 13:15 | NUR ---
PT IS READY TO GO. DRESSING IS STILL CDI. WILL BE LEAVING FLOOR WITH FAMILY MEMBER.
--- NOTE | 2017-08-14 09:03 | DS ---
PATIENT:CHAUNCEY AUGUSTE :58 MEDICAL RECORD: [id number] DISCHARGE SUMMARY ADMISSION DATE: 08/11/17 DISCHARGE DATE: 08/12/17 DIAGNOSES: 1. Angina. 2. Coronary artery disease. 3. Previous percutaneous transluminal coronary angioplasty and stent. HISTORY: Mr. Auguste presents with anginal symptomatology, found to have significant restenosis of his LAD stents and will be brought back next week for laser atherectomy of this area. TRANSINT:[id number] Voice Confirmation ID: [id number] DOCUMENT ID: [id number] KISHAN CARMONA MD at 0903 CC: [id number] DICTATION DATE: 08/12/17 0850 RESIDENTIAL PROGRAM WORKER: 08/12/172104 DIS IN 08/12/17 [facility] [address] [place] [address]
--- NOTE | 2017-08-14 09:03 | OP ---
PATIENT NAME: CHAUNCEY REDD MEDICAL RECORD: [id number] :58 LOCATION:D.M2 D.2120 ADMISSION DATE:08/11/17 SURGEON: KISHAN CARMONA MD DATE OF OPERATION: 08/12/2017 PROCEDURES: 1. Left heart catheterization. 2. Selective coronary angiography. 3. Left ventriculogram. INDICATIONS: Angina and coronary artery disease. PROCEDURE IN DETAIL: After informed consent was obtained and after detailed explanation of risks, benefits as well as alternative therapies, the patient elected to proceed with angiogram. The right radial area was prepped and draped in normal sterile fashion. The right femoral artery radial artery was cannulated via modified Seldinger technique with placement of 6-Turkmen sheath. All catheters exchanged through this sheath. FINDINGS: The left ventriculogram was performed in standard 30-degree DEVI view, reveals good cardiac wall motion throughout all segments. Overall ejection fraction estimated 60%. SELECTIVE CORONARY ANGIOGRAPHY: 1. Left main showed no significant angiographic disease. 2. Left anterior descending has previously placed stents. There is up to 80% in-stent restenosis in the mid vessel. 3. Left circumflex has moderate irregularities but no flow-limiting stenosis. 4. Right coronary has moderate irregularities but no flow-limiting stenosis. OVERALL IMPRESSION: Significant restenosis of the previously placed stents would suggest laser atherectomy at this time as there is already a Resolute and Promus stent in that area. If it has secondary restenosis after atherectomy, would evaluate for bypass surgery. TRANSINT:[id number] Voice Confirmation ID: [id number] DOCUMENT ID: [id number] KISHAN CARMONA MD at 0903 CC: [id number] DICTATION DATE: 08/12/17 0849 HOOKER LASTER: 08/12/17 1013 DIS IN 08/12/17 [facility] [address] [place] [address]
== END 2017-08-12 13:40 | disposition home or self-care (01) ==
LOC: D.ER 19:15 → D.M2 22:15 → OBSVTIME 22:15 → D.M2 08-12 13:40
PROVIDERS: Emergency Medicine; ADMIT Internal Medicine Interventional Cardiology
DX: I25.110 Atherosclerotic heart disease of native coronary artery with unstable angina pectoris (principal); Z95.5 Presence of coronary angioplasty implant and graft; T82.855A Stenosis of coronary artery stent, initial encounter; Y83.8 Other surgical procedures as the cause of abnormal reaction of the patient, or of later complication, without mention of misadventure at the time of the procedure

== ENCOUNTER 2017-08-15 07:46 | Outpatient (CLI) | payer BC ==
[~2017-08-15] VITALS: Ht 170.2 cm; Wt 79.5 kg
--- NOTE | ~2017-08-15 | HEMODYNAMI ---
PATIENT:CHAUNCEY REDD MEDICAL RECORD: [id number] : 58 LOCATION:D.CAT ADMISSION DATE: 08/15/17 Generatedon:08/18/201714:16 Patient name: CHAUNCEY REDD Patient #: [id number] SSN: : 1960 Date of study: 08/15/2017 Page: Of Hemodynamic Procedure Report Patient Data Patient Demographics Procedure consent was obtained First Name: CHAUNCEY Gender: Male Last Name: IVANIA : 1960 [facility] Initial: J Age: 56 year(s) Patient #: [id number] Race: Additional ID: [id number] Contact details Address: [address] [place] [address] State: [place] City: [place] Zip code: [address] Past Medical History Allergies Allergen Reaction Date Comments Reported Other 01/29/2016 AVELOX, CODEINE, SULFA allergy Other 05/13/2016 Sulfa,Codeine,Moxiloxacin allergy Sulfa 08/10/2016 drugs Codeine 08/10/2016 Sulfa 11/28/2016 drugs Codeine 11/28/2016 Other 11/28/2016 avelox allergy Other 08/15/2017 avelox, codeine, sulfa allergy Admission Admission Data Admission Date: 08/15/2017 Admission Time: 7:46 Lab Results Lab Result Date: 08/15/2017 Lab Result Time: 8:15 Biochemistry Name Units Result Min Max BUN mg/dl 18 --(---*)-- 7 18 Creatinine mg/dl 0.7 --(*---)-- 0.6 1.3 CBC Name Units Result Min Max Hematocrit % 43.1 --(*---)-- 42 54 Hemoglobin g/dl 14.2 --(*---)-- 13.5 17.5 Procedure Procedure Types Cath Procedure PCI Procedure Coronary Atherectomy Atherectomy w/PTCA Coronary Initial Miscellaneous Procedures Moderate Sedation up to 30 minutes Procedure Description Procedure Date Procedure Date: 08/15/2017 Procedure Start Time: 12:38 Procedure End Time: 13:08 Procedure Staff Name Function Petrona Sedrick RT Scrub Mauro Quiñones RN Nurse Crow Quevedo MD Performing Physician Jose Lo RT Monitor Emma Matamoros RN Nurse Procedure Data Cath Procedure Fluoroscopy Diagnostic fluoroscopy Total fluoroscopy Time: 8.2 time: 8.2 min min Diagnostic fluoroscopy Total fluoroscopy dose: 667 dose: 667 mGy mGy Contrast Material Contrast Material Type Amount (ml) Isovue 300 98 Entry Location Entry Primary Successful Side Size Upsize Upsize Entry Closure Succes sful Closure Location (Fr) 1 (Fr) 2 (Fr) Remarks Device Remarks Femoral Right 6 Fr Exoseal artery Short Estimated blood loss: 10 ml Procedure Complications No complications Procedure Medications Medication Administration Route Dosage 0.9% NaCl I.V. 100 ml/hr Lidocaine 2% added to field 20 Oxygen NC 2 l/min Heparin Flush Bag added to field 2 bags (1000units/500ml NS) Fentanyl I.V. 50 mcg Versed I.V. 2 mg Fentanyl I.V. 50 mcg Heparin Bolus I.V. 4000 units Fentanyl I.V. 50 mcg Versed I.V. 1 mg Fentanyl I.V. 25 mcg Versed I.V. 1 mg Plavix P.O. 75 mg Hemodynamics Rest HGB: 14.2 (g/dl) Heart Rate: 61 (bpm) Snapshots Pre Cath Intra NCS Post Cath Vital Signs Time Heart Resp SPO2 etCO2 NIBP (mmHg) Rhythm Pain Sedation Rate (ipm) (%) (mmHg) Status Level (bpm) 12:13:38 70 15 96 31.5 138/93(126) NSR 0 (11) 10(A) , No pain 12:18:23 63 19 97 36 134/82(94) NSR 0 (11) 10(A) , No pain 12:23:04 62 19 95 0 132/79(94) NSR 0 (11) 10(A) , No pain 12:27:44 64 14 96 1.5 125/78(96) NSR 0 (11) 10(A) , No pain 12:32:25 75 14 95 27.8 126/76(107) NSR 0 (11) 10(A) , No pain 12:37:05 67 17 95 0 122/80(106) NSR 0 (11) 9(A) , No pain 12:42:05 64 17 96 10.5 Measuring NSR 0 (11) 9(A) , No pain 12:42:21 63 17 96 21 119/76(105) NSR 0 (11) 10(A) , No pain 12:46:59 70 16 94 0 133/80(92) NSR 0 (11) 9(A) , No pain 12:51:40 73 15 94 14.2 129/92(111) NSR 0 (11) 9(A) , No pain 12:56:19 66 17 94 26.2 129/88(101) NSR 0 (11) 10(A) , No pain 13:01:01 69 18 96 19.5 124/80(109) NSR 0 (11) 10(A) , No pain 13:05:40 67 6 96 28.5 133/89(121) NSR 0 (11) 10(A) , No pain Medications Time Medication Route Dose Verified Delivered Reason Notes Effectiveness by by 12:09:44 0.9% NaCl I.V. 100 Crow Emma used for ml/hr aSe Matamoros RN procedure 12:10:04 Lidocaine 2% added 20ml Crow Crow for local to vial Sae Quevedo MD anesthetic field 12:10:17 Oxygen NC 2 Crow Emma Per physician l/min Sae Matamoros RN 12:10:31 Heparin Flush added 2 Crow Crow used for Bag to bags Sae Quevedo MD procedure (1000units/500ml field NS) 12:31:58 Fentanyl I.V. 50 Crow Emma for sedation mcg Sae Matamoros RN 12:32:10 Versed I.V. 2 mg Crow Emma for sedation Sae Matamoros RN 12:43:50 Heparin Bolus I.V. 4000 Crow Emma for verifi ed units Sae Matamoros RN anticoagulation by 12:43:50 Fentanyl I.V. 50 Crow Emma for sedation mcg Sae Matamoros RN 12:45:46 Fentanyl I.V. 50 Crow Emma for sedation mcg Sae Matamoros RN 12:45:57 Versed I.V. 1 mg Crow Emma for sedation Sae Matamoros RN 12:57:34 Fentanyl I.V. 25 Crow siddiqui sedation mcg Sae Matamoros RN 12:57:45 Versed I.V. 1 mg Crow siddiqui sedation Sae Matamoros RN 13:06:12 Plavix P.O. 75 mg Crow Matamoros RN antiplatelet therapy Procedure Log Time Note 11:58:46 Emma Matamoros RN sent for patient. Start room use. 11:58:47 Time tracking: Regular hours 11:58:51 Plan of Care:Hemodynamics will remain stable., Cardiac rhythm will remain stable., Comfort level will be maintained., Respiratory function will remain adequate., Patient/ family verbilizes understanding of procedure., Procedure tolerated without complication., Recovers from procedure without complications.. 12:07:06 Patient received from Pre/Post Procedure Room to CCL 1 Alert and oriented. Tansferred to table in Supine position. 12:07:08 Correct patient and procedure confirmed by team. 12:07:08 Warm blankets applied, and fady hugger turned on for patient comfort. 12:07:09 Signed procedure consent form obtained from patient. 12:07:10 ECG and BP/O2 sat monitors applied to patient. 12:07:11 Full Disclosure recording started 12:09:44 0.9% NaCl 100 ml/hr I.V. was administered by Emma Matamoors RN; used for procedure; 12:10:04 Lidocaine 2% 20ml vial added to field was administered by Crow Quevedo MD; for local anesthetic; 12:10:17 Oxygen 2 l/min NC was administered by Emma Matamoros RN; Per physician; 12:10:31 Heparin Flush Bag (1000units/500ml NS) 2 bags added to field was administered by Crow Quevedo MD; used for procedure; 12:12:43 Vital chart was started 12:17:51 Baseline sample Acquired. 12:17:55 Rhythm: sinus rhythm 12:18:06 H&P Date Dictated: 08/15/2017 New H&P dictated by physician.. 12:18:09 Pre-procedure instructions explained to patient. 12:18:10 Pre-op teaching completed and patient verbalized understanding. 12:18:12 Family in waiting room. 12:18:13 Patient NPO since Midnight. 12:18:31 Patient allergic to Other allergyavelox, codeine, sulfa 12:18:34 Is the patient allergic to Iodine/contrast media? No. 12:18:35 Is patient on blood thinner?Yes 12:18:37 ACC The patient was administered the following blood thiners within the last 24 hours: ACCPlavix 12:18:40 Patient diabetic? No. 12:18:44 Snore? Yes 12:18:44 Previous problem with sedation/anesthesia? No ? 12:18:46 Sleep apnea? No 12:18:47 Deviated septum? No 12:18:48 Opens mouth fully? Yes 12:18:49 Sticks out tongue? Yes 12:18:53 Airway obstruction? Yes COPD 12:18:55 Dentures? No ? 12:18:58 Pre procedure: right dorsailis pedis pulse 2+ Normal; easily identifiable; not easily obliterated 12:19:01 Patient pain scale 0/10 ?. 12:19:15 IV patent on arrival in left wrist with 0.9% NaCl at [facility]. 12:20:40 Lab Result : Hemoglobin 14.2 g/dl 12:20:40 Lab Result : Hematocrit 43.1 % 12:20:40 Lab Result : BUN 18 mg/dl 12:20:40 Lab Result : Creatinine 0.7 mg/dl 12:20:43 Lab results completed and on chart. 12:20:45 Right groin area was prepped with chlora-prep and draped in sterile fashion 12:20:47 Sharps counted by scrub and verified by R.N. 12:20:47 Alarms reviewed by R. N. 12:20:51 Use device set Femoral PCI 12:20:53 Tegaderm 4 x 4 opened to sterile field. 12:20:54 Acist Manifold opened to sterile field. 12:20:55 Acist Syringe opened to sterile field. 12:20:56 Bag Decanter opened to sterile field. 12:20:56 Acist Hand Control opened to sterile field. 12:20:57 Terumo 6Fr [place] Sheath opened to sterile field. 12:20:57 Medline Cath Pack opened to sterile field. 12:20:58 Merit BasixCompak Inflation Kit opened to sterile field. 12:20:58 St Anjum 260cm J .035 wire opened to sterile field. 12:22:03 [place] Sci Choice PT Extra Support 182cm wire opened to sterile field. 12:24:42 Zero performed for pressure channel P1 12:25:10 Zero performed for pressure channel P1 12:: Physician arrived :: Final Timeout: patient, procedure, and site verified with staff and physician. All members of the team are in agreement. :: --------ALL STOP TIME OUT------ :: Right groin site verified by team. 12:: Physical assessment completed. ASA score P 2 - A patient with mild systemic disease as per Crow Quevedo MD. 12::28 Sedation plan: IV Moderate Sedation Medication:Versed, Fentanyl 12::58 Fentanyl 50 mcg I.V. was administered by Emma Matamoros RN; for sedation; 12:32:10 Versed 2 mg I.V. was administered by Emma Matamoros RN; for sedation; 12:38:52 Procedure started. 12:38:55 Local anesthetic to right femoral artery with Lidocaine 2% by Crow Quevedo MD.INITIAL ACCESS ONLY 12:39:08 A 6 Fr Short sheath was inserted into the Right Femoral artery 12:43:28 BasicGov Systemstronic Launcher 6Fr EBU 4.0 guide catheter opened to sterile field. 12:43:32 6 Fr ebu 4 guide catheter was inserted over the wire 12:43:50 Heparin Bolus 4000 units I.V. was administered by Emma Matamoros RN; for anticoagulation; verified by 12:43:50 Fentanyl 50 mcg I.V. was administered by Emma Matamoros RN; for sedation; 12:44:29 ELCA 0.9mm Coronary Laser Atherectomy Catheter opend to sterile field. 12:45:17 choice pt wire advanced. 12:45:46 Fentanyl 50 mcg I.V. was administered by Emma Matamoros RN; for sedation; 12:45:57 Versed 1 mg I.V. was administered by Emma Matamoros RN; for sedation; 12:46:03 Wire advanced across lesion. 12:46:29 Laser Atherectomy Catheter advanced over wire. 12:47:35 Laser Atherectomy Catheter removed, unable to cross lesion. 12:48:45 Inflation number: 1 A Euphora 3.0 x 10 balloon was prepped and advanced across the Prox LAD, then inflated to 13 DEEP for 0:10 (min:sec). 12:48:57 Inflation number: 2 The Euphora 3.0 x 10 balloon was reinflated across the Prox LAD, to 17 DEEP for 0:00 (min:sec). 12:49:32 Balloon removed over the wire. 12:49:53 Laser Atherectomy Catheter advanced over wire. 12:52:46 multiple passes made with Laser Atherectomy at 40 Fluence 40 rate 12:55:54 Multiple passes made with Laser Atherectomy at 70 Fluence 40 rate. 12:56:18 Laser Atherectomy Catheter removed intact over wire. 12:57:34 Fentanyl 25 mcg I.V. was administered by Emma Matamoros RN; for sedation; 12:57:45 Versed 1 mg I.V. was administered by Emma Matamoros RN; for sedation; 12:57:53 Inflation number: 1 The Euphora 3.0 x 10 balloon was reinflated across the Mid LAD, to 17 DEEP for 0:10 (min:sec). 12:58:03 Inflation number: 2 The Euphora 3.0 x 10 balloon was reinflated across the Mid LAD, to 13 DEEP for 0:10 (min:sec). 12:58:24 Wire removed. 12:58:24 Balloon removed over the wire. 12:58:27 Guide catheter removed. 12:58:46 Cordis 6Fr Exoseal opened to sterile field. 12:59:04 Sheath removed intact; hemostasis achieved with Exoseal to the Right Femoral artery. 12:59:24 Procedure ended.(Physican Out) 13:03:27 Fluoroscopy time 08.20 minutes. 13:03:30 Fluoroscopy dose: 667 mGy 13:03:30 Flurop Dose total: 667 13:03:35 Contrast amount:Isovue 300 98ml. 13:03:36 Sharps counted by scrub and verified by R.N. 13:03:58 Total pulses 2280 13:04:11 Treatment time 55 seconds. 13:04:43 Insertion/operative site no bleeding no hematoma. 13:04:47 Post-op/insertion site Right Femoral artery dressed using a 4 x 4 and Tegaderm. 13:04:50 Post right femoral artery:stable, soft, clean and dry 13:04:55 Post Procedure Pulses reassessed and unchanged 13:04:58 Post-procedure physical assessment completed. ASA score P 2 - A patient with mild systemic disease as per Crow Quevedo MD. 13:05:07 Post procedure rhythm: unchanged. 13:05:14 Estimated blood loss: 10 ml 13:05:16 Patient needs reinforcement of post procedure teaching. 13:05:16 Post procedure instruction explained to patient.Patient verbalizes understanding. 13:06:12 Plavix 75 mg P.O. was administered by Emma Matamoros RN; for antiplatelet therapy; 13:06:52 Procedure type changed to Cath procedure, PCI procedure, Coronary Atherectomy, Atherectomy w/PTCA Coronary Initial, Miscellaneous Procedures, Moderate Sedation up to 30 minutes 13:07:42 Procedure and supply charges have been captured, reviewed, submitted and are correct. 13:07:46 Procedure Complication : No complications 13:07:51 Vital chart was stopped 13:07:52 See physician's report for complete and final results. 13:07:54 Report given to Pre/Post Procedure Room. 13:07:57 Patient transfered to Pre/Post Procedure Room with Stretcher. 13:08:05 Full Disclosure recording stopped 13:08:05 Procedure ended. 13:08:12 End room use (Document Last) 14:14:51 LATE ENTRY BELOW OCCURRED: 08/15/2017 12:44:29 14:15:40 A LASER: ELCA 0.9 Rx atherectomy catheter ([id number]) was prepped and advanced across the Prox LAD lesion. Pass Number: 1 Intervention Summary Intervention Notes Time ActionType Lesion and Equipment Action# Pressure Duration Attributes Used 12:48:45 Inflate Prox LAD EUPHORA 3.0 1 13 00:10 balloon x 10 balloon ([id number]) 12:48:57 Reinflate Prox LAD EUPHORA 3.0 2 17 00:00 balloon x 10 balloon ([id number]) 12:57:53 Reinflate Mid LAD EUPHORA 3.0 1 17 00:10 balloon x 10 balloon ([id number]) 12:58:03 Reinflate Mid LAD EUPHORA 3.0 2 13 00:10 balloon x 10 balloon ([id number]) 14:15:40 Atherectomy Prox LAD LASER: ELCA 00:00 0.9 Rx atherectomy catheter ([id number]) Device Usage Item Name Manufacture Quantity Catalog Number Hospital Part Current Minim al Lot# / Charge Number Stock Stock Serial# Code Tegaderm 4 3M 1 1626W 506402 [id number] 508011 5 x 4 (1626W) ACIST Acist 1 85706 390953 264314 442475 5 Manifold Medical (36556) Systems Inc ACIST Acist 1 46359 673828 526416 393909 20 Syringe Medical (28736) Systems Inc ACIST Hand Acist 1 28416 879545 354716 985305 5 Control Medical (86420) Systems Inc Bag Microtek 1 2001S 791927 09182 921317 5 Decanter Medical Inc. (2001S) Medline Cardinal 1 [id number] 438289 71590 525270 5 Cath Pack DoublePositive ([id number]) Terumo 6Fr Terumo 1 YCU219 092636 003538 483900 [address] [place] [address] Anjum 1 767465 728365 472879 206337 30 260cm J .035 wire INFLATOR [employer] 1 RT8127 118201 339826 690962 15 Novaled BasixCompak Inflation Kit (QW0977) [place] Sci [place] 1 [id number] 367529 445456 543282 5 Choice PT Scientific Extra Support 182cm wire GUIDE 6FR Medtronic 1 [id number] 886715 27255 574639 1 EBU 4.0 guide catheter ([id number]) EUPHORA 3.0 Medtronic 1 [id number] 178278 096906 763335 5 [id number] x 10 balloon ([id number]) EXOSEAL 6Fr Cardinal 1 EX600 447695 401656 476144 10 (EX600) Health LASER: ELCA Austyn 1 110-004 012961 5 0.9 Rx Healthcare atherectomy (795258) catheter (328962) Signature Audit [place] Stage Time Signature Unsigned Intra-Procedure 08/15/2017 Jose Russ Counts 1:09:00 PM RT(R) RT(R) 08/18/2017 2:13:41 PM Intra-Procedure 08/18/2017 Petrona 2:15:56 PM Counts RT(R) Signatures Monitor : Jose Lo RT Signature : Date : Time : [place] [address] [place] [address]
[~2017-08-15 07:46] MED LIST changes: +ISOSORBIDE MONO30 M1 PO; +PLAQUENIL200 MG PO; +ZANAFLEX4 MG PO
[2017-08-15] MEDS ORDERED: VITAMIN B-12500 MC1 PO (08:12)
[2017-08-15] MEDS ORDERED: FISH OIL 1,0001 CA1 PO (08:13)
[2017-08-15] MEDS ORDERED: BIOTIN5 MG PO (08:13)
[2017-08-15] MEDS ORDERED: CO Q-10100 MG PO (08:14)
[2017-08-15] MEDS ORDERED: ASCORBIC ACID500 MG PO (08:14)
[2017-08-15] MEDS ORDERED: GLUCOSAMINE & C1 CAP PO (08:15)
[2017-08-15] MEDS ORDERED: OMEPRAZOLE20 M1 PO (08:15)
[2017-08-15] MEDS ORDERED: ALLEGRA-D1 TAB.SR . (08:16)
[2017-08-15 08:22] VITALS: BP 121/70; Ht 170.2 cm; Wt 79.5 kg
[2017-08-15 08:24] LABS: BASOPHILS 0.4 % (0-2); EOSINOPHILS 2.7 % (0-7); HEMATOCRIT 43.1 % (42.0-54.0); HEMOGLOBIN 14.2 g/dL (13.5-17.5); IMMATURE GRANULOCYTES 0.2 % (0-5); LYMPHOCYTES 28.1 % (15-50); MCH 29.8 pg (26.0-34.0); MCHC 32.9 g/dL (31.0-37.0); MCV 90.4 fL (80.0-100.0); MEAN PLATELET VOLUME 9.6 fL (7.4-10.4); MONOCYTES 7.2 % (2-11); NEUTROPHILS 61.4 % (40-80); PLATELET COUNT 247 10x3/uL (130-400); RBC 4.77 10x6/uL (4.20-6.10); RDW 13.7 % (11.5-14.5); WBC 5.5 10x3/uL (4.8-10.8)
[2017-08-15 08:37] LABS: CALC OSMOLALITY 282 mosm/kg (275-300); CALCIUM 8.9 mg/dL (8.5-10.1); CARBON DIOXIDE 27.9 mmol/L (21.0-32.0); CHLORIDE - SERUM 105 mmol/L (98-107); CREATININE - SERUM 0.7 mg/dL (0.6-1.3); GLUCOSE 101 mg/dL (74-106); POTASSIUM - SERUM 3.8 mmol/L (3.5-5.1); SODIUM 141 mmol/L (136-145); UREA NITROGEN 18 mg/dL (7-18); eGFR NON AFRICAN AMERICAN > 90 mL/min (90-120)
--- NOTE | 2017-08-15 13:20 | NUR ---
1320 RECEIVED PT FROM BUSINESS PROFESSOR. PT IS ALERT. PT DENIES ANY C/O CHEST PAIN OR NAUSEA. BP 117/80. NSR WITH RATE OF 72. SAT IS 97% ON ROOM AIR. DRESSING TO RIGHT GROIN IS CDI, AREA IS SOFT AND NONTENDER. PEDAL PULSES PALPABLE. FAMILY AT BEDSIDE, CALL LIGHT IN REACH. PT INSTRUCTED TO KEEP HEAD TO PILLOW AND AVOID BENDING, FLEXING RIGHT LEG.
--- NOTE | 2017-08-15 13:51 | NUR ---
PO FLUIDS SERVED. DRESSING CDI, AREA SOFT AND NONTENDER. PEDAL PULSES PALPABLE. DENIES ANY C/O. BP 111/82, NSR RATE OF 60.
--- NOTE | 2017-08-15 14:10 | NUR ---
1410 PT SLEEPING, AWAKENS EASILY TO VERBAL STIMULI. DENIES ANY C/O. DRESSING RIGHT GROIN IS CDI, AREA SOFT AND NONTENDER. PEDAL PULSES PALPABLE. SINUS BRADYCARDIA WITH RATE 58. AT BEDSIDE, CALL LIGHT IN REACH.
--- NOTE | 2017-08-15 14:45 | NUR ---
1445 PT DENIES ANY C/O. DRESSING RIGHT GROIN IS CDI, AREA SOFT AND NONTENDER. PEDAL PULSES PALAPABLE. RR EVEN AND UNLABORED. NSR. CALL LIGHT IN REACH.
--- NOTE | 2017-08-15 15:24 | NUR ---
DRESING RIGHT GROIN CDI, AREA SOFT AND NONTENDER. NSR, RATE 62. DENIES ANY C/O AT THIS TIME. CALL LIGHT IN REACH.
--- NOTE | 2017-08-15 16:00 | NUR ---
PT SLEEPING, AWAKENS EASILY TO VERBAL STIMULI. DRESSING CDI, AREA SOFT AND NONTENDER. PEDAL PULSES PALPABLE. PT DENIES NEEDS AT THIS TIME. CALL LIGHT IN REACH.
--- NOTE | 2017-08-15 16:45 | NUR ---
1645 DRESSING TO RIGHT GROIN IS CDI, AREA SOFT AND NONTENDER. IV DC'D WITH CATH INTACT. PT MARIE SANDWICH WITH NO C/O NAUSEA. PT DRESSING FOR DC TO HOME.
--- NOTE | 2017-08-15 17:12 | NUR ---
1630 HOB ELEVATED. DRESSING CDI, PT DENIES ANY C/O. SANDWICH TRAY SERVED. AT BEDSIDE. PT HAS USED URINAL AND VOIDED 600 CC CLEAR YELLOW URINE.
--- NOTE | 2017-08-15 17:14 | NUR ---
1700 DC INSTRUCTIONS HAVE BEEN REVIEWED WITH PT AND WHO VERBALIZE UNDERSTANDING. PT ESCORTED TO PRIVATE AUTO VIA WC BY NURSE WITH DRIVING HIM HOME. PT DENIES ANY C/O UPON DC.
--- NOTE | 2017-08-29 12:14 | OP ---
PATIENT NAME: CHAUNCEY REDD MEDICAL RECORD: [id number] :58 LOCATION:D.CAT ADMISSION DATE: SURGEON: KISHAN CARMONA MD DATE OF OPERATION: 08/15/2017 PROCEDURES: 1. Laser atherectomy LAD. 2. PTCA LAD. 3. Selective coronary angiography. INDICATION: Angina and coronary artery disease. PROCEDURE IN DETAIL: After informed consent was obtained and after a detailed explanation of risks, benefits as well as alternative therapies, the patient elected to proceed with angiogram and atherectomy. The right femoral area was prepped and draped in normal sterile fashion. Right femoral artery was cannulated via modified Seldinger technique with placement of 6-[place] sheath. All catheters exchanged through this sheath. FINDINGS: The left anterior descending has previously placed stents with 80% in-stent restenosis. This underwent laser atherectomy with a 0.9 mm laser catheter, multiple passes were made. Ballooning was undertaken with a 3.0 balloon. Result was 0% residual stenosis. OVERALL IMPRESSION: Successful percutaneous transluminal coronary angioplasty stent of the left anterior descending going from 80% in-stent restenosis to 0% residual stenosis. TRANSINT:[id number] Voice Confirmation ID: [id number] DOCUMENT ID: [id number] KISHAN CARMONA MD at 1214 CC: [id number] DICTATION DATE: 08/15/17 1304 CLINICAL PHARMACOLOGIST: 08/15/17 1426 DEP CLI 08/15/17 [place] [id number]
--- NOTE | 2017-08-29 12:14 | HP ---
PATIENT: CHAUNCEY REDD MEDICAL RECORD: [id number] ACCOUNT: [id number] LOCATION:WONG : 58 ADMISSION DATE: 08/15/17 HISTORY AND PHYSICAL EXAMINATION ADMITTING DIAGNOSES: 1. Angina. 2. Coronary artery disease. 3. Chronic obstructive pulmonary disease. HISTORY OF PRESENT ILLNESS: This is a gentleman, who presents with anginal symptomatology, past history of coronary artery disease, previous PTCA and stent. EKG is abnormal and suggests resting ischemia. He has anginal symptomatology, has escalated over the past few weeks, just like that of his previous angina. PHYSICAL EXAMINATION: GENERAL APPEARANCE: Well-nourished, well-developed, appears stated age. Level of distress, comfortable. PSYCHIATRIC: Mental status, alert, normal affect. Orientation, oriented to time, place and person. EYES: Lids and conjunctiva, noninjected. No discharge, no pallor. ENT: Lips, teeth, gums, normal dentition. Oropharynx, no cyanosis, no pallor. NECK: Carotid arteries, bilateral normal upstroke, no bruits, no thrills. JUGULAR VEINS: No jugular venous pressure or distention. CERVICAL LYMPH NODES: Nontender, nonenlarged. THYROID: Not enlarged. Nontender. No nodules. LUNGS: Respiratory effort, unlabored. CHEST: Normal curvature. No thoracic deformity. No chest wall tenderness. Percussion, resonant. Auscultation, clear. No wheezes, no rales, no rhonchi. CARDIOVASCULAR: Precordial exam, nondisplaced. No heaves or pericardial thrills. Rate and rhythm, regular. Heart sounds, normal S1, normal S2. No S3, no gallop, no rub. Systolic murmur, not heard. Diastolic murmur, not heard. EXTREMITIES: No cyanosis, no edema. Peripheral pulses, full and equal in all extremities, except as noted. No bruits appreciated. ABDOMEN: Soft, nondistended. Normal aorta. No bruit. Nontender. No masses. Liver, nontender, no hepatomegaly. Spleen, nontender, no splenomegaly. MUSCULOSKELETAL: No joint tenderness. No joint swelling. No erythema. NEUROLOGICAL: Normal gait, normal strength, normal tone. SKIN: Warm and dry. REVIEW OF SYSTEMS: The patient reports easy bruising but reports no swollen glands. The patient reports no fever, no night sweats, no significant weight gain, no significant weight loss. No significant exercise tolerance. The patient reports no dry eyes, no irritation, no vision change. Patient reports no difficulty hearing and no ear pain. Patient reports no frequent nose bleeds or nose and sinus problems. Patient reports on arm pain on exertion. No shortness of breath while lying down. No history of heart murmur. Patient reports no cough, no wheezing or coughing up blood. Patient reports no abdominal pain, no vomiting. Normal appetite. No diarrhea and not vomiting blood. No nausea and no constipation. Patient reports no incontinence. No difficulty urinating. No hematuria. No increased frequency. Patient reports no muscle aches. No weakness, no arthralgias, no back pain. No swelling of the extremities. Patient reports no abnormal mole, no jaundice, no rashes. Reports no loss of consciousness. No weakness and no numbness. No seizures, dizziness, HISTORY AND PHYSICAL [id number] IVANIA,CHAUNCEY Gali or headaches. The patient reports no depression, no sleep disturbance, feeling safe in a relationship and no alcohol abuse. Patient reports on fatigue. Reports no runny nose or sinus pressure. No itching, no hives, and no frequent sneezing. OVERALL IMPRESSION: Unstable anginal symptomatology in an escalating fashion with abnormal ECG, most likely has recurrent hemodynamically significant coronary artery disease. We will proceed with coronary angiography. Further care depends upon findings of the angiography. TRANSINT:[id number] Voice Confirmation ID: [id number] DOCUMENT ID: [id number] KISHAN CARMONA MD at 1214 CC: [id number] DICTATION DATE: 08/15/17 0849 MOLDER OPERATOR: 08/15/17 0907 DEP CLI 08/15/17 [place] [address]
== END 2017-08-15 17:00 | disposition home or self-care (01) ==
LOC: D.CATH 07:46
PROVIDERS: Internal Medicine Interventional Cardiology
DX: I25.111 Atherosclerotic heart disease of native coronary artery with angina pectoris with documented spasm (principal); T82.855A Stenosis of coronary artery stent, initial encounter; J44.9 Chronic obstructive pulmonary disease, unspecified; Z01.812 Encounter for preprocedural laboratory examination

== ENCOUNTER 2017-10-26 00:18 | Observation (INO) | payer BC ==
[2017-08-15 08:22] VITALS: Ht 170.2 cm; Wt 81.6 kg
[~2017-10-26] VITALS: Ht 170.2 cm; Wt 81.6 kg
--- NOTE | ~2017-10-26 | HEMODYNAMI ---
PATIENT:CHAUNCEY REDD MEDICAL RECORD: [id number] : 58 [facility] [id number] ADMISSION DATE: 10/26/17 Generatedon:10/26/201710:41 Patient name: CHAUNCEY REDD Patient #: [id number] SSN: : 1960 Date of study: 10/26/2017 Page: Of Hemodynamic Procedure Report Patient Data Patient Demographics Procedure consent was obtained First Name: CHAUNCEY Gender: Male Last Name: IVANIA : 1960 [facility] Initial: J Age: 57 year(s) Patient #: [id number] Race: Additional ID: [id number] Contact details [address]: [address] [place] [address] State: [place] City: [place] Zip code: [address] Past Medical History Allergies Allergen Reaction Date Comments Reported Other 01/29/2016 AVELOX, CODEINE, SULFA allergy Other 05/13/2016 Sulfa,Codeine,Moxiloxacin allergy Sulfa 08/10/2016 drugs Codeine 08/10/2016 Sulfa 11/28/2016 drugs Codeine 11/28/2016 Other 11/28/2016 avelox allergy Other 08/15/2017 avelox, codeine, sulfa allergy Other 10/26/2017 codeine allergy Admission Admission Data Admission Date: 10/26/2017 Admission Time: 5:12 Admit Source: Emergency department Room #: LIAT Lab Results Lab Result Date: 10/26/2017 Lab Result Time: 1:35 Biochemistry Name Units Result Min Max BUN mg/dl 26 --(----)-* 7 18 Creatinine mg/dl 0.8 --(-*--)-- 0.6 1.3 CBC Name Units Result Min Max Hematocrit % 39.1 -*(----)-- 42 54 Hemoglobin g/dl 13.3 -*(----)-- 13.5 17.5 Procedure Procedure Types Cath Procedure Diagnostic Procedure [facility] w/[facility] Procedure Description Procedure Date Procedure Date: 10/26/2017 Procedure Start Time: 10:24 Procedure End Time: 10:36 Procedure Staff Name Function John Nelson MD Performing Physician Jose Lo RT Monitor Lyudmila Myers RT Scrub Mauro Quiñones RN Nurse Curtis Martin RN [employer] Install[employer] Crew Member Procedure Data Cath Procedure Fluoroscopy Diagnostic fluoroscopy Total fluoroscopy Time: 1.8 time: 1.8 min min Diagnostic fluoroscopy Total fluoroscopy dose: 448 dose: 448 mGy mGy Contrast Material Contrast Material Type Amount (ml) Isovue 300 51 Entry Location Entry Primary Successful Side Size Upsize Upsize Entry Closure Orantes ccessful Closure Location (Fr) 1 (Fr) 2 (Fr) Remarks Device Remarks Radial Right 6 Fr Mechanical artery Short Compression Estimated blood loss: 5 ml Diagnostic catheters Device Type Used For End Catheter Placement DIAGNOSTIC José Miguel 110cm Procedure 5Fr catheter ([id number]) Procedure Complications No complications Procedure Medications Medication Administration Route Dosage Oxygen NC 2 l/min Lidocaine 2% added to field 20 Heparin Flush Bag added to field 2 bags (1000units/500ml NS) 0.9% NaCl I.V. 100 ml/hr Versed I.V. 1 mg Fentanyl I.V. 50 mcg Radial Cocktail I.A. 1 syringe (Verapomil 2mg/Nitro 400mcg/Heparin 1500units) Versed I.V. 1 mg Fentanyl I.V. 50 mcg Hemodynamics Rest HGB: 13.3 (g/dl) Heart Rate: 68 (bpm) Pressure Samples Time Site Value (mmHg) Purpose Heart Use Rate(bpm) 10:25 LV 131/-5,14 Snapshot 75 10:26 AO 125/76(97) Pullback 86 10:26 LV 137/0,19 Pullback 86 Gradients Valve Time Site 1 Site 2 Mean SEP/DFP Peak To Heart Use (mmHg) (sec/min) Peak Rate (mmHg) (bpm) Aortic 10:26 LV AO 19 7 12 86 137/0,19 125/76(97) Calculations Valve P-P Mean Valve Index Valve Source Name Gradient Area Flow (cm2) Aortic 12 19 12 19 Snapshots Pre Cath Intra NCS Post Cath Vital Signs Time Heart Resp SPO2 etCO2 NIBP (mmHg) Rhythm Pain Sedation Rate (ipm) (%) (mmHg) Status Level (bpm) 10:18:09 68 14 100 44.1 134/85(115) NSR 0 (11) 10(A) , No pain 10:23:10 67 14 99 19 141/89(106) NSR 0 (11) 10(A) , No pain 10:27:51 72 15 99 30.4 132/62(94) NSR 0 (11) 9(A) , No pain 10:32:28 70 14 99 20.5 132/69(96) NSR 0 (11) 9(A) , No pain 10:37:45 67 15 100 20.5 134/75(96) NSR 0 (11) 10(A) , No pain Medications Time Medication Route Dose Verified Delivered Reason Notes Effectiveness by by 10:17:47 Oxygen NC 2 l/min Ojhn Buffie used for Omar Quiñones RN procedure 10:17:54 Lidocaine 2% added 20ml John John for local to vial Omar Nelson MD anesthetic field 10:18:01 Heparin Flush added 2 bags John John used for Bag to Omar Nelson MD procedure (1000units/500ml field NS) 10:18:09 0.9% NaCl I.V. 100 John Buffie Per ml/hr Omar Quiñones RN physician 10:21:04 Fentanyl I.V. 50 mcg John Buffie for sedation Omar Quiñones RN 10:21:59 Versed I.V. 1 mg John Buffie for sedation Omar Quiñones RN 10:25:18 Radial Cocktail I.A. 1 John John for (Verapomil syringe Omar Nelson MD vasodilation 2mg/Nitro 400mcg/Heparin 1500units) 10:27:36 Versed I.V. 1 mg John John for sedation Omar Nelson MD 10:27:40 Fentanyl I.V. 50 mcg John John for sedation Omar Nelson MD Procedure Log Time Note 9:58:00 Informed consent obtained and on chart 9:58:07 Admit Source: Emergency department 9:58:32 Diagnostic Cath status Elective 9:58:34 Curtis Martin RN sent for patient. Start room use. 9:58:35 Time tracking: Regular hours 9:58:38 Plan of Care:Hemodynamics will remain stable., Cardiac rhythm will remain stable., Comfort level will be maintained., Respiratory function will remain adequate., Patient/ family verbilizes understanding of procedure., Procedure tolerated without complication., Recovers from procedure without complications.. 9:58:51 H&P Date Dictated: 10/26/2017 Within 30 days and on chart., New H&P dictated by physician.. 10::19 Lab Result : Hemoglobin 13.3 g/dl 10:: Lab Result : Hematocrit 39.1 % 10:: Lab Result : BUN 26 mg/dl 10:: Lab Result : Creatinine 0.8 mg/dl 10:04:46 Patient received from ED to CCL 1 Alert and oriented. Tansferred to table in Supine position. 10:04:48 Warm blankets applied, and fady hugger turned on for patient comfort. 10:04:48 Correct patient and procedure confirmed by team. 10:04:51 ECG and BP/O2 sat monitors applied to patient. 10:17:19 Vital chart was started 10:17:24 Baseline sample Acquired. 10:17:26 Rhythm: sinus rhythm 10:17:28 Pre-procedure instructions explained to patient. 10:17:28 Pre-op teaching completed and patient verbalized understanding. 10:17:29 Family in waiting room. 10:17:31 Patient NPO since Midnight. 10:17:41 Patient allergic to Other allergycodeine 10:17:46 Is the patient allergic to Iodine/contrast media? No. 10:17:47 Oxygen 2 l/min NC was administered by Mauro Quiñones RN; used for procedure; 10:17:48 Is patient on blood thinner?Yes 10:17:50 ACC The patient was administered the following blood thiners within the last 24 hours: ACCPlavix 10:17:52 Patient diabetic? No. 10:17:54 Lidocaine 2% 20ml vial added to field was administered by John Nelson MD; for local anesthetic; 10:17:59 Previous problem with sedation/anesthesia? No ? 10:18:00 Snore? Yes 10:18:01 Heparin Flush Bag (1000units/500ml NS) 2 bags added to field was administered by John Nelson MD; used for procedure; 10:18:01 Sleep apnea? No 10:18:02 Deviated septum? No 10:18:03 Opens mouth fully? Yes 10:18:04 Sticks out tongue? Yes 10:18:06 Airway obstruction? Yes COPD 10:18:09 0.9% NaCl 100 ml/hr I.V. was administered by Mauro Quiñones RN; Per physician; 10:18:09 Dentures? No ? 10:18:11 Pre procedure: right dorsailis pedis pulse 2+ Normal; easily identifiable; not easily obliterated 10:18:16 Modified Bryan's test Ulnar < 7 seconds 10:18:18 Patient pain scale 0/10 ?. 10:18:27 IV patent on arrival in left antecubital with 0.9% NaCl at [facility]. 10:18:36 Lab results completed and on chart. 10:18:38 Right Radial & Right Groin area was prepped with chlora-prep and draped in sterile fashion 10:18:39 Alarms reviewed by R. N. 10:18:40 Sharps counted by scrub and verified by R.N. 10:18:43 Use device set Radial Dx or PCI 10:18:45 ACIST Syringe (34878) opened to sterile field. 10:18:46 Medline Cath Pack ([id number]) opened to sterile field. 10:18:47 ACIST Hand Control (47422) opened to sterile field. 10:18:48 ACIST Manifold (85032) opened to sterile field. 10:18:49 Tegaderm 4 x 4 (1626W) opened to sterile field. 10:18:50 MBrace Wrist Support ([id number]) opened to sterile field. 10:18:54 Bag Decanter (2002S) opened to sterile field. 10:18:58 NEEDLE Cook 21G 4cm Radial ([id number]) opened to sterile field. 10:18:59 SHEATH 6FR Slender ([id number]) opened to sterile field. 10:18:59 DIAGNOSTIC WIRE .035 260cm J wire (992627) opened to sterile field. 10:19:07 Physician arrived 10:19:08 --------ALL STOP TIME OUT------ 10:19:08 Final Timeout: patient, procedure, and site verified with staff and physician. All members of the team are in agreement. 10:19:10 Right Radial & Right Groin site verified by team. 10:19:13 Physical assessment completed. ASA score P 2 - A patient with mild systemic disease as per John Nelson MD. 10:19:16 Sedation plan: IV Moderate Sedation Medication:Versed, Fentanyl 10::04 Fentanyl 50 mcg I.V. was administered by Mauro Quiñones RN; for sedation; 10::59 Versed 1 mg I.V. was administered by Mauro Quiñones RN; for sedation; ::37 Procedure started. 10::37 Full Disclosure recording started 10::41 Local anesthetic to right radial artery with Lidocaine 2% by John Nelson MD.INITIAL ACCESS ONLY 10:24:49 A 6 Fr Short sheath was inserted into the Right Radial artery 10::55 A DIAGNOSTIC José Miguel 110cm 5Fr catheter ([id number]) was advanced over the wire and used for Procedure. 10:25:04 Zero performed for pressure channel P1 10::13 Zero performed for pressure channel P1 10:25:18 Radial Cocktail (Verapomil 2mg/Nitro 400mcg/Heparin 1500units) 1 syringe I.A. was administered by John Nelson MD; for vasodilation; 10::47 LV hemodynamics recorded. 10:26:18 LV gram done using DEVI 10::37 Injector settings: Ml/sec: 5, Volume: 15, ::41 EF : 55 % 10::47 LCA angiography performed. 10:27:36 Versed 1 mg I.V. was administered by John Nelson MD; for sedation; 10::40 Fentanyl 50 mcg I.V. was administered by John Nelson MD; for sedation; 10:28:04 RCA angiography performed. 10:31:56 Catheter removed. 10:32:12 Sheath removed intact; hemostasis achieved with Mechanical Compression to the Right Radial artery. 10:32:14 Procedure ended.(Physican Out) 10:33:47 Fluoroscopy time 01.80 minutes. 10:33:50 Fluoroscopy dose: 448 mGy 10:33:50 Flurop Dose total: 448 10:33:58 Contrast amount:Isovue 300 51ml. 10:34:00 Sharps counted by scrub and verified by R.N. 10:34:02 TR band inflated with 15cc of air. 10:34:47 Insertion/operative site no bleeding no hematoma. 10:34:56 Post right radial artery:stable, soft, clean and dry 10:34:58 Post Procedure Pulses reassessed and unchanged 10:35:00 Post-procedure physical assessment completed. ASA score P 2 - A patient with mild systemic disease as per John Nelson MD. 10:35:02 Post procedure rhythm: unchanged. 10:35:05 Estimated blood loss: 5 ml 10:35:06 Post procedure instruction explained to patient.Patient verbalizes understanding. 10:35:07 Patient needs reinforcement of post procedure teaching. 10:35:33 TR BAND Standard ([id number]) opened to sterile field. 10:35:45 Procedure and supply charges have been captured, reviewed, submitted and are correct. 10:35:47 Procedure Complication : No complications 10:36:03 Vital chart was stopped 10:36:03 See physician's report for complete and final results. 10:36:14 Report given to Pre/Post Procedure Room. 10:36:16 Patient transfered to Pre/Post Procedure Room with Stretcher. 10:36:22 Procedure ended. 10:36:22 Full Disclosure recording stopped 10:36:25 End room use (Document Last) Device Usage Item Name Manufacture Quantity Catalog Hospital Part Current Minima l Lot# / Number Charge Number Stock Stock Serial# Code ACIST Acist 1 [id number] [id number] 297607 [id number] 20 Syringe Medical (50246) Systems Inc Medline Cath Cardinal 1 [id number] 800889 97577 390355 5 Pack Health ([id number]) ACIST Hand Acist 1 48915 797002 428053 442706 5 Control Medical (22969) Systems Inc ACIST Acist 1 89376 958716 192924 649882 5 Manifold Medical (29703) Systems Inc Tegaderm 4 x 3M 1 1626W 176252 182212 330347 5 4 (1626W) MBrace Wrist Advanced 1 140-0250-00 263099 49513 675837 5 Support Vascular ([id number]) Dynamics Bag Decanter Microtek 1 2001S 397707 93817 747913 5 (2001S) Medical Inc. NEEDLE [email or web address] Medical 1 [id number] 089296 835960 726744 5 21G 4cm Radial (H33774) SHEATH 6FR Terumo 1 [id number] 372442 532392 710855 40 Slender ([id number]) DIAGNOSTIC St Anjum 1 728806 975840 211514 666252 30 WIRE .035 260cm J wire (160083) DIAGNOSTIC Terumo 1 20-6266 088226 633668 877066 5 José Miguel 110cm 5Fr catheter (891079) TR BAND Terumo 1 [id number] 410426 979117 990657 40 Standard ([id number]) Signature Audit [place] Stage Time Signature Unsigned Intra-Procedure 10/26/2017 Jose Lo 10:41:41 AM RT(R) Signatures Monitor : Jose Lo RT Signature : Date : Time : [facility] [address] [place] [address]
[~2017-10-26 00:18] MED LIST changes: +ALLEGRA-D1 TAB.SR .; +ASCORBIC ACID500 MG PO; +BIOTIN5 MG PO; +FISH OIL 1,0001 CA1 PO; +GLUCOSAMINE & C1 CAP PO; +VITAMIN B-12500 MC1 PO
[2017-10-26 00:57] LABS: HEMATOCRIT 39.1 % (42.0-54.0); HEMOGLOBIN 13.3 g/dL (13.5-17.5); LYMPHOCYTES 23.6 % (15-50); MCH 29.7 pg (26.0-34.0); MCV 87.3 fL (80.0-100.0); MEAN PLATELET VOLUME 8.5 fL (7.4-10.4); NEUTROPHILS 64.9 % (40-80); PLATELET COUNT 257 10x3/uL (130-400); RBC 4.48 10x6/uL (4.20-6.10); RDW 13.2 % (11.5-14.5); WBC 4.9 10x3/uL (4.8-10.8)
[2017-10-26 00:58] LABS: ALBUMIN 3.4 g/dL (3.4-5.0); ALKALINE PHOSPHATASE 68 U/L (46-116); ALT (SGPT) 28 U/L (10-68); BILIRUBIN - TOTAL 0.37 mg/dL (0.2-1.3); CALC OSMOLALITY 283 mosm/kg (275-300); CALCIUM 8.8 mg/dL (8.5-10.1); CARBON DIOXIDE 28.3 mmol/L (21.0-32.0); CHLORIDE - SERUM 104 mmol/L (98-107); CREATININE - SERUM 0.8 mg/dL (0.6-1.3); GLUCOSE 95 mg/dL (74-106); POTASSIUM - SERUM 4.1 mmol/L (3.5-5.1); PROTEIN - SERUM 6.8 g/dL (6.4-8.2); SODIUM 140 mmol/L (136-145); UREA NITROGEN 26 mg/dL (7-18); eGFR NON AFRICAN AMERICAN > 90 mL/min (90-120)
[2017-10-26 01:09] LABS: CHOL - HDL RATIO 4.2 ratio (2.3-4.9); CHOLESTEROL, TOTAL 151 mg/dL (0-200); CKMB 0.7 U/L (0.0-3.6); CREATINE KINASE 40 UL (21-232); HDL CHOLESTEROL 36 mg/dL (32-96); LDL CHOLESTEROL 94 mg/dL (0-100); LDL-HDL RATIO 2.6 ratio (1.5-3.5); TRIGLYCERIDE 108 mg/dL (30-200); TROPONIN-I < 0.017 ng/mL (0.000-0.060)
[2017-10-26 06:05] LABS: CKMB 0.6 U/L (0.0-3.6); CREATINE KINASE 31 UL (21-232); TROPONIN-I < 0.017 ng/mL (0.000-0.060)
== END 2017-10-26 13:15 | disposition home or self-care (01) ==
LOC: D.ER 00:18 → D.SDCHOLD 05:12 → OBSVTIME 05:12 → D.SDCHOLD 05:12
PROVIDERS: Family Medicine
DX: I25.110 Atherosclerotic heart disease of native coronary artery with unstable angina pectoris (principal); Z95.5 Presence of coronary angioplasty implant and graft; E78.5 Hyperlipidemia, unspecified

== ENCOUNTER → 2020-05-08 08:41 | Outpatient (CLI) | payer BC ==
[2017-08-15 08:22] VITALS: BMI 27.4
== END | disposition home or self-care (01) ==
LOC: D.HCCECHO 08:41
PROVIDERS: ATTEND Internal Medicine Cardiovascular Disease
DX: I25.10 Atherosclerotic heart disease of native coronary artery without angina pectoris (principal)

== ENCOUNTER 2020-05-20 12:06 | Day surgery (SDC) | payer BC ==
[~2020-05-20] VITALS: Ht 170.2 cm; Wt 82.5 kg
--- NOTE | ~2020-05-20 | HEMODYNAMI ---
PATIENT:CHAUNCEY REDD MEDICAL RECORD: [id number] : 58 LOCATION:D.CAT ADMISSION DATE: 05/20/20 Generatedon:05/20/202014:22 Patient name: CHAUNCEY REDD Patient #: [id number] SSN: [id number] : 1960 Date of study: 05/20/2020 Page: Of Hemodynamic Procedure Report Patient Data Patient Demographics Procedure consent was obtained First Name: CHAUNCEY Gender: Male Last Name: IVANIA : 1960 [facility] Initial: J Age: 59 year(s) Patient #: [id number] Race: SSN: [id number] Additional ID: [id number] Contact details [address]: [address] [place] [address] State: [place] City: [place] Zip code: [address] Past Medical History Allergies Allergen Reaction Date Comments Reported Other 01/29/2016 AVELOX, CODEINE, SULFA allergy Other 05/13/2016 Sulfa,Codeine,Moxiloxacin allergy Sulfa 08/10/2016 drugs Codeine 08/10/2016 Sulfa 11/28/2016 drugs Codeine 11/28/2016 Other 11/28/2016 avelox allergy Other 08/15/2017 avelox, codeine, sulfa allergy Other 10/26/2017 codeine allergy Other 05/20/2020 Sulfa, codeine, allergy moxifloxacin Admission Admission Data Admission Date: 05/20/2020 Admission Time: 12:06 Arrival Date: 05/20/2020 Arrival Time: 0:00 Admit Source: Other Insurance Payor: Private health insurance [facility] #: [id number] Height (in.): 68 BSA: 1.99 (m2) Height (cm.): 172.72 BMI: 28.43 (kg/m2) Weight (lbs.): 187 Weight (kg.): 84.82 Lab Results Lab Result Date: 05/20/2020 Lab Result Time: 0:00 Biochemistry Name Units Result Min Max BUN mg/dl 19 --(----)*- 7 18 Creatinine mg/dl 0.8 --(-*--)-- 0.6 1.3 eGFR ml/min 90 --(*---)-- 90 120 NONAFRICAN CBC Name Units Result Min Max Hemoglobin g/dl 14.3 --(*---)-- 13.5 17.5 Procedure Procedure Types Cath Procedure Diagnostic Procedure [facility] w/Coronaries Sedation Charges Moderate Sedation up to 15 minutes Procedure Description Procedure Date Procedure Date: 05/20/2020 Procedure Start Time: 14:09 Procedure End Time: 14:19 Procedure Staff Name Function John Nelson MD Performing Physician Mary Smith RT Monitor Sriram Wolf RN Nurse Araseli Card RT Scrub Procedure Data Cath Procedure Fluoroscopy Diagnostic fluoroscopy Total fluoroscopy Time: 1.8 time: 1.8 min min Diagnostic fluoroscopy Total fluoroscopy dose: 410 dose: 410 mGy mGy Contrast Material Contrast Material Type Amount (ml) Isovue 300 36 Entry Location Entry Primary Successful Side Size Upsize Upsize Entry Closure Succes sful Closure Location (Fr) 1 (Fr) 2 (Fr) Remarks Device Remarks Radial Right 6 Fr Exoseal artery Short Estimated blood loss: 10 ml Diagnostic catheters Device Type Used For End Catheter Placement DIAGNOSTIC José Miguel 110cm Procedure 5Fr catheter ([id number]) Procedure Complications No complications Procedure Medications Medication Administration Route Dosage 0.9% NaCl I.V. 100 ml/hr Oxygen etCO2 Nasal cannula 2 l/min Heparin Flush Bag added to field 2 bags (1000units/500ml NS) Lidocaine 2% added to field 20 Radial Cocktail added to field 1 syringe (Verapamil 2mg/Nitro 400mcg/Heparin 1500units) Versed I.V. 1 mg Fentanyl I.V. 50 mcg Versed I.V. 1 mg Fentanyl I.V. 50 mcg Radial Cocktail I.A. 1 syringe (Verapamil 2mg/Nitro 400mcg/Heparin 1500units) Hemodynamics Rest BSA: 1.99 (m2) O2 Consumption: Estimated: 229.77 (ml/min) O2 Consumption indexed : Estimated:115.46 (ml/min/m) Heart Rate: 65 (bpm) Pressure Samples Time Site Value (mmHg) Purpose Heart Use Rate(bpm) 14:12 LV 114/-4,10 Snapshot 65 14:13 AO 98/59(77) Pullback 66 14:13 LV 112/6,15 Pullback 66 Gradients Valve Time Site 1 Site 2 Mean SEP/DFP Peak To Heart Use (mmHg) (sec/min) Peak Rate (mmHg) (bpm) Aortic 14:13 LV AO 8 13 14 66 112/6,15 98/59(77) Calculations Valve P-P Mean Valve Index Valve Source Name Gradient Area Flow (cm2) Aortic 14 8 14 8 Snapshots Pre Cath Intra NCS Post Cath Vital Signs Time Heart Resp SPO2 etCO2 NIBP Rhythm Pain Sedation Rate (ipm) (%) (mmHg) (mmHg) Status Level (bpm) 13:51:38 61 11 97 35.8 112/72(90) NSR 0 (11) 10(A) , No pain 13:55:46 58 14 93 30.6 127/70(92) NSR 0 (11) 10(A) , No pain 14:00:41 53 15 96 43.3 121/70(88) NSR 0 (11) 10(A) , No pain 14:04:51 59 14 93 46.2 128/67(82) NSR 0 (11) 10(A) , No pain 14:09:05 60 18 94 49.2 116/70(88) NSR 0 (11) 9(A) , No pain 14:13:13 64 19 96 38 93/74(86) NSR 0 (11) 9(A) , No pain 14:18:12 64 10 95 44 122/70(88) NSR 0 (11) 10(A) , No pain Medications Time Medication Route Dose Verified Delivered Reason Notes Effectiveness by by 13:49:26 0.9% NaCl I.V. 100 Sriram Sriram Per ml/hr Luciano Wolf physician RN RN 13:49:37 Oxygen etCO2 2 l/min Sriram Sriram for low 02 Nasal Luciano Wolf sats cannula RN RN 13:49:49 Heparin Flush added 2 bags Sriram Sriram used for Bag to Luciano Wolf procedure (1000units/500ml field RN RN NS) 13:50:02 Lidocaine 2% added 20ml Sriram Sriram for local to vial Lorigan Luciano anesthetic RN RN 13:50:21 Radial Cocktail added 1 Sriram Sriram used for (Verapamil to syringe Lorigan Lorigan procedure 2mg/Nitro field RN RN 400mcg/Heparin 1500units) 13:56:47 Versed I.V. 1 mg Sriram Sriram for sedation Luciano Wolf RN RN 13:56:56 Fentanyl I.V. 50 mcg Sriram Sriram for sedation Luciano Wolf RN RN 14:01:07 Versed I.V. 1 mg Sriram Sriram for sedation Luciano Wolf RN RN 14:01:13 Fentanyl I.V. 50 mcg Sriram Sriram for sedation Luciano Wolf RN RN 14:10:41 Radial Cocktail I.A. 1 Sriram John for (Verapamil syringe Luciano Nelson MD vasodilation 2mg/Nitro RN 400mcg/Heparin 1500units) Procedure Log Time Note 13:39:08 Arrival Date: 05/20/2020 12:00:00 AM 13:39:21 Admit Source: Other 13:39:25 Insurance Payor : Private health insurance 13:39:34 Patient Height : 68 inches 13:39:41 Patient Weight : 187 lbs 13:41:25 Lab Result : eGFR NONAFRICAN 90 ml/min 13:41:25 Lab Result : Hemoglobin 14.3 g/dl 13:41:25 Lab Result : BUN 19 mg/dl 13:41:25 Lab Result : Creatinine 0.8 mg/dl 13:41:30 Diagnostic Cath Status : Elective 13:42:09 Procedure Status Elective Heart Cath (OP). 13:42:12 Sriram Wolf RN sent for patient. Start room use. 13:42:30 Time tracking: Regular hours (M-F 7:00 - 5:00) 13:42:35 Plan of Care:Hemodynamics will remain stable., Cardiac rhythm will remain stable., Comfort level will be maintained., Respiratory function will remain adequate., Patient/ family verbilizes understanding of procedure., Procedure tolerated without complication., Recovers from procedure without complications.. 13:42:42 Patient received from Pre/Post Procedure Room to CCL 1 Alert and oriented. Tansferred to table in Supine position. 13:42:52 Signed procedure consent form obtained from patient. 13:42:53 Warm blankets applied, and fady hugger turned on for patient comfort. 13:42:54 Correct patient and procedure confirmed by team. 13:42:54 ECG and BP/O2 sat monitors applied to patient. 13:43:06 H&P Date Dictated: 04/22/2020 Within 30 days and on chart., H&P Addendum completed by physician on day of procedure. (MUST COMPLETE FOR ALL OUTPATIENTS). 13:43:09 Pre-procedure instructions explained to patient. 13:43:12 Family in waiting room. 13:43:16 Patient NPO since Midnight. 13:43:55 Patient allergic to Other allergySulfa, codeine, moxifloxacin 13:43:58 Is the patient allergic to Iodine/contrast media? No. 13:44:03 Was the patient premedicated? Yes 13:44:12 Is patient on blood thinner?No 13:44:17 Patient diabetic? No. 13:44:24 Lab results completed and on chart. 13:44:29 Snore? Yes 13:44:32 Sleep apnea? No 13:44:39 Airway obstruction? Yes COPD 13:44:44 Dentures? No ? 13:45:13 Patient pain scale 0/10 ?. 13:45:24 IV patent on arrival in left antecubital with 0.9% NaCl at [facility]. 13:45:32 Stress Test: yes; normal ? 13:45:37 Right Radial & Right Groin area was prepped with chlora-prep and draped in sterile fashion 13:45:39 Alarms reviewed by R. N. 13:45:39 Sharps counted by scrub and verified by R.N. 13:45:41 Physician paged 13:45:42 Physician arrived 13:46:09 Physical assessment completed. ASA score P 2 - A patient with mild systemic disease as per John Nelson MD. 13:46:14 1) 90+ Normal kidney functon but urine findings or structural abnormalities or genetic trait point to kidney disease. 13:46:24 Maximum allowable contrast dose (3.7 X eGFR X 0.75)250 ml. 13:49:26 0.9% NaCl 100 ml/hr I.V. was administered by Sriram Wolf RN; Per physician; Verbal order read back and verified. 13:49:37 Oxygen 2 l/min etCO2 Nasal cannula was administered by Sriram Wlof RN; for low 02 sats; Verbal order read back and verified. 13:49:49 Heparin Flush Bag (1000units/500ml NS) 2 bags added to field was administered by Sriram Wolf RN; used for procedure; Verbal order read back and verified. 13:50:02 Lidocaine 2% 20ml vial added to field was administered by Sriram Wolf RN; for local anesthetic; Verbal order read back and verified. 13:50:21 Radial Cocktail (Verapamil 2mg/Nitro 400mcg/Heparin 1500units) 1 syringe added to field was administered by Sriram Wolf RN; used for procedure; Verbal order read back and verified. 13:50:22 Vital chart was started 13:53:58 --------ALL STOP TIME OUT------ 13:53:58 Final Timeout: patient, procedure, and site verified with staff and physician. All members of the team are in agreement. 13:54:00 Right groin site verified by team. 13:54:05 Fire Safety Assessment: A--An alcohol-based skin anteseptic being used preoperatively., C--Open oxygen or nitrous oxide is being used., D--An ESU, laser, or fiber-optic light is being used. 13:54:18 Sedation plan: IV Moderate Sedation Medication:Versed, Fentanyl 13:54:23 Use device set Radial Dx or PCI 13:54:26 Procedure started. 13:54:26 Full Disclosure recording started 13:55:21 ACIST Syringe (22146) opened to sterile field. 13:55:21 Medline Cath Pack ([id number]) opened to sterile field. 13:55:21 Bag Decanter () opened to sterile field. 13:55:22 ACIST Hand Control (44703) opened to sterile field. 13:55:22 ACIST Manifold (46011) opened to sterile field. 13:55:23 Tegaderm 4 x 4 (1626W) opened to sterile field. 13:55:24 MBrace Wrist Support ([id number]) opened to sterile field. 13:55:24 NEEDLE Cook 21G 4cm Radial (O67051) opened to sterile field. 13:55:26 EMERALD Guide Wire (457-882) opened to sterile field. 13:55:27 SHEATH 6FR RAIN ([id number]) opened to sterile field. 13:56:47 Versed 1 mg I.V. was administered by Sriram Wolf RN; for sedation; Verbal order read back and verified. 13:56:56 Fentanyl 50 mcg I.V. was administered by Sriram Wolf RN; for sedation; Verbal order read back and verified. 14:01:07 Versed 1 mg I.V. was administered by Sriram Wolf RN; for sedation; Verbal order read back and verified. 14:01:13 Fentanyl 50 mcg I.V. was administered by Sriram Wolf RN; for sedation; Verbal order read back and verified. 14:05:01 Zero performed for pressure channel P1 14:09:00 Local anesthetic to right radial artery with Lidocaine 2% by John Nelson MD.INITIAL ACCESS ONLY 14:09:13 A 6 Fr Short sheath was inserted into the Right Radial artery 14:10:41 Radial Cocktail (Verapamil 2mg/Nitro 400mcg/Heparin 1500units) 1 syringe I.A. was administered by John Nelson MD; for vasodilation; Verbal order read back and verified. 14:11:00 J wire advanced. 14:11:13 A DIAGNOSTIC José Miguel 110cm 5Fr catheter ([id number]) was advanced over the wire and used for Procedure. 14:11:21 LV angiography performed. 14:11:26 Zero performed for pressure channel P1 14:13:05 EF : 60 % 14:13:36 LCA angiography performed. 14:15:02 RCA angiography performed. 14:15:57 Catheter removed. 14:16:01 ZEPHYR REGULAR TR BAND ([id number]) opened to sterile field. 14:16:50 Sheath removed intact; hemostasis achieved with Exoseal to the Right Radial artery. 14:16:53 Procedure ended.(Physican Out) 14:17:35 Fluoroscopy time 01.80 minutes. 14:17:40 Fluoroscopy dose: 410 mGy 14:17:40 Flurop Dose total: 410 14:17:50 Dose Area Product 07435 mGy/cm. 14:17:54 Contrast amount:Isovue 300 36ml. 14:17:56 Maximum allowable dose exceeded? No. 14:17:57 Sharps counted by scrub and verified by R.N. 14:17:59 [place] band inflated with 10cc of air. 14:18:01 Insertion/operative site no bleeding no hematoma. 14:18:09 Post right radial artery:stable 14:18:13 Post-procedure physical assessment completed. ASA score P 2 - A patient with mild systemic disease as per John Nelson MD. 14:18:18 Estimated blood loss: 10 ml 14:18:22 Post procedure instruction explained to patient.Patient verbalizes understanding. 14:18:41 Procedure type changed to Cath procedure, Diagnostic procedure, LHC, C w/Coronaries, Sedation Charges, Moderate Sedation up to 15 minutes 14:18:42 Procedure and supply charges have been captured, reviewed, submitted and are correct. 14:19:07 Procedure Complication : No complications 14:19:09 Vital chart was stopped 14:19:12 [facility] Findings: mild to moderate CAD (<70%) 14:19:17 Operative report dictated upon procedure completion. 14:19:18 See physician's report for complete and final results. 14:19:20 Report given to Pre/Post Procedure Room. 14:19:23 Patient transfered to Pre/Post Procedure Room with Stretcher. 14:19:26 Procedure ended. 14:19:26 Full Disclosure recording stopped 14:19:29 End room use (Document Last) 14:21:45 End room use (Document Last) 14:22:07 End room use (Document Last) Device Usage Item Name Manufacture Quantity Catalog Hospital Part Current Minima l Lot# / Number Charge Number Stock Stock Serial# Code ACIST Acist 1 75302 326137 [id number] 20 Syringe Medical (71864) Systems Inc Medline Medline 1 [id number] 815761 88511 438370 5 Cath Pack ([id number]) Bag Microtek 1 608602 95158 389899 5 Decanter Medical Inc. () ACIST Hand Acist 1 29822 725034 957405 826702 5 Control Medical (74977) Systems Inc ACIST Acist 1 57595 327952 719744 714247 5 Manifold Medical (81738) Systems Inc Tegaderm 4 3M 1 1626W 403213 230434 511087 5 x 4 (1626W) MBrace Advanced 1 140-0250-00 293274 79945 074601 5 Wrist Vascular Support Dynamics ([id number]) NEEDLE Everdream Cook Medical 1 [id number] 884056 309914 467850 5 21G 4cm Radial (Z22746) EMERALD Cardinal 1 502-455 799326 695396 919208 5 Guide Wire Health (381-416) SHEATH 6FR Cardinal 1 9371987 493654 3169335 720585 5 [facility] Health (8525372) DIAGNOSTIC Terumo 1 40-4446 052198 069309 351090 5 José Miguel 110cm 5Fr catheter (065039) ZEPHYR Cardinal 1 388349 803013 3066124 138168 5 REGULAR TR Health BAND (881974) Signature Audit [place] Stage Time Signature Unsigned Intra-Procedure 05/20/2020 aMry Smith 2:21:45 PM RT(R) Intra-Procedure 05/20/2020 Sriram 2:22:07 PM Luciano FOSTER Intra-Procedure 05/20/2020 John Nelson MD 2:22:33 PM [facility] [address] [place] [address]
[~2020-05-20 12:06] MED LIST changes: -BIOTIN5 MG PO; +MERIBIN5 MG PO
[2020-05-20 12:35] VITALS: BP 126/73; Ht 170.2 cm; Wt 82.5 kg
[2020-05-20] MEDS ORDERED: ALBUTEROL SULF8.5 GM INH (12:44)
[2020-05-20] MEDS ORDERED: NITROQUICK0.4 MG SL (12:44)
[2020-05-20] MEDS ORDERED: TRAZODONE HCL150 MG PO (12:45)
[2020-05-20 12:55] LABS: ALT (SGPT) 21 U/L (10-68); CALC OSMOLALITY 279 mosm/kg (275-300); CARBON DIOXIDE 26.9 mmol/L (21.0-32.0); CHLORIDE - SERUM 106 mmol/L (98-107); CHOLESTEROL, TOTAL 198 mg/dL (0-200); CREATININE - SERUM 0.8 mg/dL (0.6-1.3); GLUCOSE 88 mg/dL (74-106); HDL CHOLESTEROL 49 mg/dL (32-96); LDL CHOLESTEROL 127 mg/dL (0-100); LDL-HDL RATIO 2.6 ratio (1.5-3.5); SODIUM 140 mmol/L (136-145); TRIGLYCERIDE 113 mg/dL (30-200); UREA NITROGEN 19 mg/dL (7-18); eGFR NON AFRICAN AMERICAN > 90 mL/min (90-120)
[2020-05-20 13:22] LABS: BASOPHILS 0.5 % (0-2); HEMATOCRIT 42.8 % (42.0-54.0); HEMOGLOBIN 14.3 g/dL (13.5-17.5); IMMATURE GRANULOCYTES 0.2 % (0-5); LYMPHOCYTES 25.6 % (15-50); MCHC 33.4 g/dL (31.0-37.0); MCV 89.7 fL (80.0-100.0); MEAN PLATELET VOLUME 9.5 fL (7.4-10.4); MONOCYTES 7.1 % (2-11); NEUTROPHILS 63.6 % (40-80); PLATELET COUNT 289 10x3/uL (130-400); RBC 4.77 10x6/uL (4.20-6.10); RDW 13.1 % (11.5-14.5); WBC 6.1 10x3/uL (4.8-10.8)
--- NOTE | 2020-05-20 14:30 | NUR ---
PT REC'D TO ROOM 3 VIA STRETCHER FROM PLATING OPERATOR. MONITORS ESTAB. SEE HEALTHCARE OR MEDICAL, ALARMS ON AND C/L IN REACH.
--- NOTE | 2020-05-20 14:45 | NUR ---
R WRIST Z BAND SITE C/D/I, NO S/S BLEEDING OR SWELLING. PULSES PALP, BRISK CAP REFILL. VSS. PT RESTING QUIETLY, ALARMS ON AND C/L IN REACH.
--- NOTE | 2020-05-20 15:15 | NUR ---
R WRIST SITE C/D/I, NO S/S BLEEDING OR SWELLING. PULSES PALP. VSS. PT RESTING QUIETLY, AT BS. ALARMS ON AND C/L IN REACH.
--- NOTE | 2020-05-20 15:30 | NUR ---
VSS. 3CC AIR REMOVED FROM Z BAND, NO S/S BLEEDING, HAND WARM WITH PALP PULSES. WILL CONT CLOSE MONITORING.
--- NOTE | 2020-05-20 15:45 | NUR ---
TOTAL 7CC AIR REMOVED FROM Z BAND. NO S/S BLEEDING OR SWELLING. VSS. AT BS.
--- NOTE | 2020-05-20 16:00 | NUR ---
ALL AIR REMOVED FROM Z BAND, NO S/S BLEEDING OR SWELLING. VSS. ALARMS ON AND C/L IN REACH.
--- NOTE | 2020-05-20 16:15 | NUR ---
R WRIST SITE C/D/I. NO S/S BLEEDING OR SWELLING. Z BAND REMOVED, 2X2 AND TEGADERM DSG APPLIED. PIV D/C'D INTACT, DSG APPLIED. PT ALLOWED UP TO GET DRESSED AND GO TO BR INDEPENDENTLY.
--- NOTE | 2020-05-20 16:25 | NUR ---
ALL DISCHARGE INSTRUCTIONS, INCLUDING RESTRICTIONS, MEDS AND F/U APPT, REVIEWED WITH PT AND HIS , BOTH VERBALIZE UNDERSTANDING, NO QUESTIONS AT THIS TIME.
--- NOTE | 2020-05-20 16:30 | NUR ---
PT D/C'D VIA WC TO PRIVATE VEHICLE, PT HAS ALL PAPERWORK AND BELONGINGS.
== END 2020-05-20 16:30 | disposition home or self-care (01) ==
LOC: D.CATH 12:06
PROVIDERS: ATTEND Internal Medicine Cardiovascular Disease
DX: I25.119 Atherosclerotic heart disease of native coronary artery with unspecified angina pectoris (principal); R94.39 Abnormal result of other cardiovascular function study